=== PATIENT | male | born 1955 | race Caucasian/White ===

== ENCOUNTER 2017-04-02 20:20 | Emergency (ER) | payer BC ==
--- NOTE | 2017-04-02 20:51 | ERPHSYRPT ---
- History of Present Illness Time Seen by Provider: 04/02/17 20:24 Source: patient Exam Limitations: no limitations Patient Subjective Stated Complaint: rash began on to groin area, no drainage or fevers, but not getting better after using Clotrimazole cream at home Triage Nursing Assessment: excoriated, red rash to groin area, no drainage noted , no fevers Physician History: 61 y/o male with history of multiple myeloma comes to the ER with complaints of bilateral groin redness with itching for the past 3 days. Pt has been using clotrimazole cream with no relief. Pt states that he believes that there is seeping and it has spread. No fever or chills. Timing/Duration: day(s) Quality: itchy Location: extremities Possible Causes: no cause identified Modifying Factors: Improves With: other Associated Symptoms: denies symptoms Allergies/Adverse Reactions: ciprofloxacin Allergy (Verified 01/29/16 15:02) morphine Allergy (Verified 01/29/16 15:02) oxycodone [Oxycodone] Allergy (Verified 01/29/16 15:02) prochlorperazine edisylate [From Compazine] Allergy (Verified 01/29/16 15:02) prochlorperazine maleate [From Compazine] Allergy (Verified 01/29/16 15:02) Sulfa (Sulfonamide Antibiotics) [Sulfa(Sulfonamide Antibiotics)] Allergy ( Verified 01/29/16 15:02) Home Medications: Metoprolol Succinate 100 mg [Toprol Xl 100 MG] 100 mg PO DAILY 01/29/16 [ History] Nifedipine [Nifedipine ER] 30 mg PO DAILY 01/29/16 [History] Acyclovir [Acyclovir] 1 tab PO DAILY 04/02/17 [History] Allopurinol 300 mg [Zyloprim 300 mg] 1 tab PO DAILY 04/02/17 [History] Gabapentin [Gabapentin] 1 tab PO DAILY 04/02/17 [History] Ondansetron [Zofran Odt] 1 tab PO PRN 04/02/17 [History] Hx Tetanus, Diphtheria Vaccination/Date Given: Yes Hx Influenza Vaccination/Date Given: No Hx Pneumococcal Vaccination/Date Given: No Immunizations Up to Date: Yes - Review of Systems Constitutional: No Fever, No Chills Eyes: No Symptoms Ears, Nose, & Throat: No Symptoms Respiratory: No Cough, No Dyspnea Cardiac: No Chest Pain, No Edema, No Syncope Abdominal/Gastrointestinal: No Abdominal Pain, No Nausea, No Vomiting, No Diarrhea Genitourinary Symptoms: No Dysuria Musculoskeletal: No Back Pain, No Neck Pain Skin: Pruritis, Rash, Skin Lesions Neurological: No Dizziness, No Focal Weakness, No Sensory Changes Psychological: No Symptoms Endocrine: No Symptoms All Other Systems: Reviewed and Negative - Past Medical History Pertinent Past Medical History: Yes Neurological History: Migraines, Peripheral Neuropathy ENT History: No Pertinent History Cardiac History: Hypertension Respiratory History: Pneumonia Endocrine Medical History: No Pertinent History Musculoskeletal History: Fractures, Other GI Medical History: Hernia History: No Pertinent History Psycho-Social History: No Pertinent History Male Reproductive Disorders: No Pertinent History Other Medical History: MULTIPLE MYeLOMA - Past Surgical History Past Surgical History: Yes Neuro Surgical History: No Pertinent History Cardiac: Vascular Surgery Respiratory: No Pertinent History Gastrointestinal: Hernia Repair Genitourinary: No Pertinent History Musculoskeletal: Joint Replacement, Orthopedic Surgery Male Surgical History: No Pertinent History Other Surgical History: KNEE. cvl port - Social History Smoking Status: Former smoker Exposure to second hand smoke: No Drug Use: none Patient Lives Alone: No - Nursing Vital Signs Nursing Vital Signs: Initial Vital Signs Temperature 97.5 F 04/02/17 20:31 Pulse Rate 80 04/02/17 20:31 Respiratory Rate 18 04/02/17 20:31 Blood Pressure 141/78 04/02/17 20:31 O2 Sat by Pulse Oximetry 99 04/02/17 20:31 Pain Scale Pain Intensity 0 - Physical Exam General Appearance: no apparent distress, alert Eye Exam: PERRL/EOMI, eyes nml inspection Ears, Nose, Throat Exam: normal ENT inspection, pharynx normal, moist mucous membranes Neck Exam: normal inspection, non-tender, supple, full range of motion Respiratory Exam: normal breath sounds, lungs clear, No respiratory distress Cardiovascular Exam: regular rate/rhythm, normal heart sounds Gastrointestinal/Abdomen Exam: soft, mass, No tenderness Back Exam: normal inspection, normal range of motion, No CVA tenderness, No vertebral tenderness Extremity Exam: normal inspection, normal range of motion Neurologic Exam: alert, oriented x 3, cooperative, normal mood/affect, sensation nml, No motor deficits Skin Exam: normal color, warm, dry, rash SpO2: 99 Oxygen Delivery: Room Air - Course Nursing assessment & vital signs reviewed: Yes Ordered Tests: Active Orders 24 hr Category Date Time Status BMP Stat Lab 04/02/17 20:43 Completed Medication Summary Generic Name Dose Route Start Last Admin Trade Name Slime PRN Reason Stop Dose Admin Terbinafine HCl 250 mg 04/02/17 21:49 Lamisil 250 Mg PO 04/02/17 21:50 ONCE ONE Lab/Rad Data: Laboratory Result Diagrams 04/02/17 20:43 Laboratory Results 04/02/17 Range/Units 20:43 Sodium 139 (136-145) mEq/L Potassium 4.6 (3.5-5.1) mEq/L Chloride 106 (98-107) mEq/L Carbon Dioxide 25.5 (21-32) mEq/L Anion Gap 11.6 (5-15) MEQ/L BUN 30 H (9-20) mg/dL Creatinine 1.71 H (0.55-1.30) mg/dl Estimated GFR 44 ML/MIN Glucose 110 (70-110) MG/DL Calcium 9.0 (8.5-10.1) mg/dL - Progress Progress: unchanged Progress Note: 04/02/17 21:50 Pt has tinea cruris and has been using clotrimazole for 3 days with worsening results. Also, patient is a high risk patient with multiple myeloma. Pt will be d/c home with a script for terbinafine for 2 weeks. I have advised the patient to F/U with his PCP in 2 weeks for resolution of symptoms. - Departure Time of Disposition: 21:52 Departure Disposition: Home Clinical Impression: Tinea cruris Condition: Stable Critical Care Time: No Referrals: SAVITA FARAH [Primary Care Provider] - Instructions: Rash Additional Instructions: Finish the medication until completion. After 2 weeks, follow up with your primary care doctor. Prescriptions: Terbinafine HCl [Lamisil] 250 mg PO DAILY #14 tablet
[2017-04-02 21:24] LABS: ANION GAP 11.6 MEQ/L (5-15); Carbon Dioxide 25.5 mEq/L (21-32); Potassium 4.6 mEq/L (3.5-5.1)
[2017-04-02] MEDS ORDERED: lamISIL 250 MG PO ONE (21:49)
[2017-04-02 22:37] VITALS: BP 133/77; PULSE 72; O2SAT 94
== END 2017-04-02 22:46 | disposition home or self-care (01) ==
LOC: ED 20:20
DX: B35.6 Tinea cruris (principal); C90.00 Multiple myeloma not having achieved remission
CPT/HCPCS: 36415; 80048; 99283; A9270-GY

== ENCOUNTER 2017-07-06 18:25 | Emergency (ER) | payer MEDICARE, BC ==
[2017-07-06 19:30] LABS: BASOPHIL % 0.3 % (0.0-0.4); Basophil (Absolute #) 0.01 (0-0.4); Eosinophil % 1.2 % (0.00-5.0); Eosinophil (Absolute #) 0.04 (0-0.5); Granulocyte Absolute (ANC) 1.48 (1.4-6.9); Granulocytes % 46.2 % (36.0-66.0); Hemoglobin 10.3 gm/dl (12.5-18.0); Lymphocyte (Absolute #) 1.15 (1.0-4.6); Lymphocytes % 35.8 % (24.0-44.0); Mean Cell Volume 96.9 fl (78-100); Mean Corpuscular Hgb Concent. 33.2 g/dl (32-36); Mean Platelet Volume 10.4 fl (6-9.5); Monocyte (Absolute #) 0.53 (0.0-1.3); Monocytes % 16.5 % (0.0-12.0); Platelet Count 114 K/mm3 (150-450); Red Cell Distribution Width 17.5 % (11.5-14.0); White Blood Count 3.2 K/mm3 (4.0-10.5)
[2017-07-06] MEDS ORDERED: Hydromorphone 1 mg/ml Ampule IV ONE ×2 (19:32→23:34)
[2017-07-06] MEDS ORDERED: Sodium Chloride 0.9% 1000 ML 1,000 ML IV STA (19:32)
[2017-07-06 19:36] LABS: Mean Corpuscular Hemoglobin 32.1 pg (26-32)
--- NOTE | 2017-07-06 19:36 | ERPHSYRPT ---
- History of Present Illness Time Seen by Provider: 07/06/17 19:29 Historian: patient Exam Limitations: no limitations Patient Subjective Stated Complaint: pt reports right low abd pain beginning this morning-intermittant in nature-at times sharp and at times dull-denies difficulty with urination-denies difficulty with bowels Triage Nursing Assessment: pt pink warm and dry-reports pain with palp to right flank area-abd soft and nontender to palp-pt yesterday was dx with flu b Physician History: 61-year-old white male arrives with complaint of right lower quadrant abdominal pain symptoms since this morning crampy severe nonradiating no associated nausea or vomiting Past medical history includes peripheral neuropathy, pneumonia, migraines, high blood pressure, fractures, multiple myeloma Past surgical history includes vascular surgery, hernia, surgery on the patient' s knee, patient has a port Timing/Duration: today (2:00 am today) Activities at Onset: none Quality: cramping Abdominal Pain Onset Location: RLQ Pain Radiation: no radiation Severity of Pain-Max: moderate Severity of Pain-Current: moderate Modifying Factors: Improves With: nothing Associated Symptoms: denies symptoms Previous symptoms: no prior history Allergies/Adverse Reactions: ciprofloxacin Allergy (Verified 07/06/17 18:42) morphine Allergy (Verified 07/06/17 18:42) oxycodone [Oxycodone] Allergy (Verified 07/06/17 18:42) prochlorperazine edisylate [From Compazine] Allergy (Verified 07/06/17 18:42) prochlorperazine maleate [From Compazine] Allergy (Verified 07/06/17 18:42) Sulfa (Sulfonamide Antibiotics) [Sulfa(Sulfonamide Antibiotics)] Allergy ( Verified 07/06/17 18:42) Home Medications: Metoprolol Succinate 100 mg [Toprol Xl 100 MG] 100 mg PO DAILY 01/29/16 [ History] Nifedipine [Nifedipine ER] 30 mg PO DAILY 01/29/16 [History] Acyclovir [Acyclovir] 1 tab PO DAILY 04/02/17 [History] Allopurinol 300 mg [Zyloprim 300 mg] 1 tab PO DAILY 04/02/17 [History] Gabapentin [Gabapentin] 1 tab PO DAILY 04/02/17 [History] Ondansetron [Zofran Odt] 1 tab PO UD PRN 04/02/17 [History] Hx Tetanus, Diphtheria Vaccination/Date Given: Yes Hx Influenza Vaccination/Date Given: No Hx Pneumococcal Vaccination/Date Given: No Immunizations Up to Date: Yes - Review of Systems Constitutional: No Fever, No Chills Eyes: No Symptoms Ears, Nose, & Throat: No Symptoms Cardiac: No Chest Pain, No Edema, No Syncope Abdominal/Gastrointestinal: Abdominal Pain (right lower quadrant abdominal pain) , No Nausea, No Vomiting, No Diarrhea, No Constipation, No Hematemesis, No Hematochezia, No Melena, No Dysphagia, No Appetite Changes Genitourinary Symptoms: No Dysuria, No Frequency, No Hematuria, No Hesitancy, No Incontinence, No Urgency, No Urinary Retention, No Flank Pain, No Testicle Pain, No Penile Discharge Musculoskeletal: No Symptoms, No Back Pain, No Neck Pain Skin: No Symptoms, No Rash Neurological: No Dizziness, No Focal Weakness, No Sensory Changes Psychological: No Symptoms Endocrine: No Symptoms All Other Systems: Reviewed and Negative - Past Medical History Pertinent Past Medical History: Yes Neurological History: Migraines, Peripheral Neuropathy ENT History: No Pertinent History Cardiac History: Hypertension Respiratory History: Pneumonia Endocrine Medical History: No Pertinent History Musculoskeletal History: Fractures, Other GI Medical History: Hernia History: No Pertinent History Psycho-Social History: No Pertinent History Male Reproductive Disorders: No Pertinent History Other Medical History: MULTIPLE MYeLOMA - Past Surgical History Past Surgical History: Yes Neuro Surgical History: No Pertinent History Cardiac: Vascular Surgery Respiratory: No Pertinent History Gastrointestinal: Hernia Repair Genitourinary: No Pertinent History Musculoskeletal: Joint Replacement, Orthopedic Surgery Male Surgical History: No Pertinent History Other Surgical History: KNEE. cvl port - Social History Smoking Status: Former smoker Exposure to second hand smoke: No Drug Use: none Patient Lives Alone: No - Nursing Vital Signs Nursing Vital Signs: Initial Vital Signs Temperature 97.3 F 07/06/17 18:36 Pulse Rate 67 07/06/17 18:36 Respiratory Rate 18 07/06/17 18:36 Blood Pressure 155/76 07/06/17 18:36 O2 Sat by Pulse Oximetry 97 07/06/17 18:36 Pain Scale Pain Intensity 4 - Physical Exam General Appearance: moderate distress Eye Exam: PERRL/EOMI, eyes nml inspection Ears, Nose, Throat Exam: normal ENT inspection, pharynx normal, moist mucous membranes Neck Exam: normal inspection, non-tender, supple, full range of motion Cardiovascular Exam: regular rate/rhythm, normal heart sounds Gastrointestinal/Abdomen Exam: soft, normal bowel sounds, tenderness (right lower quadrant abdominal pain), No distention, No mass, No guarding, No ecchymosis, No pulsatile mass, No rebound, No hernia, No hepatomegaly, No organomegaly, No splenomegaly Back Exam: normal inspection, normal range of motion, No CVA tenderness, No vertebral tenderness Extremity Exam: normal inspection, normal range of motion, pelvis stable Neurologic Exam: alert, oriented x 3, cooperative, normal mood/affect, nml cerebellar function, sensation nml, No motor deficits SpO2 Interpretation: normal (97%) SpO2: 97 Oxygen Delivery: Room Air - Course Nursing assessment & vital signs reviewed: Yes - CT Exams Abdomen/Pelvis CT Interpretation: Discussed w/radiologist (4.5 mm distal right ureteral calculus proximal to right uvj, proximal mils hydroureter, moderate hydronephrosis, and mild perinephric stranding consistent with obstructive uropathy, additional bilateral renal mjicrocalculi, and 2.5 cm right renal cyst. small hiatal hernia and old bilateral lower rib fracturesnumerous bony lytic lesions in spineand pelvis, consistent with known multiple myeloma) Ordered Tests: Active Orders 24 hr Category Date Time Status IV Insertion STAT Care 07/06/17 19:15 Active ABDOMEN AND PELVIS W/0 CONTRAS [CT] Stat Exams 07/06/17 20:58 Taken CBC W DIFF Stat Lab 07/06/17 18:50 Completed CMP Stat Lab 07/06/17 18:50 Completed UA W/ MICROSCOPIC Stat Lab 07/06/17 20:00 Completed Medication Summary Discontinued Medications Generic Name Dose Route Start Last Admin Trade Name Freq PRN Reason Stop Dose Admin Hydromorphone HCl 1 mg 07/06/17 19:32 07/06/17 19:40 Hydromorphone 1 Mg/Ml Ampule IV 07/06/17 19:33 1 mg STAT ONE Administration Hydromorphone HCl Confirm 07/06/17 19:39 Dilaudid 2 Mg Injection Administered 07/06/17 19:40 Dose 2 mg .ROUTE .[facility]-MED ONE Hydromorphone HCl 1 mg 07/06/17 23:34 07/06/17 23:40 Hydromorphone 1 Mg/Ml Ampule IV 07/06/17 23:35 1 mg STAT ONE Administration Hydromorphone HCl Confirm 07/06/17 23:39 Dilaudid 2 Mg Injection Administered 07/06/17 23:40 Dose 2 mg .ROUTE .STK-MED ONE Sodium Chloride 1,000 mls @ 999 mls/hr 07/06/17 19:32 07/06/17 19:40 Sodium Chloride 0.9% 1000 Ml IV 07/06/17 20:32 999 mls/hr .Q1H1M STA Administration Sodium Chloride Confirm 07/06/17 19:39 Sodium Chloride 0.9% 1000 Ml Administered 07/06/17 19:40 Dose 1,000 mls @ ud .ROUTE .STK-MED ONE Sodium Chloride 1,000 mls @ 100 mls/hr 07/06/17 22:45 07/06/17 22:42 Sodium Chloride 0.9% 1000 Ml IV 08/05/17 22:44 100 mls/hr .Q10H BOBBY Administration Sodium Chloride Confirm 07/06/17 22:41 Sodium Chloride 0.9% 1000 Ml Administered 07/06/17 22:42 Dose 1,000 mls @ ud .ROUTE .STK-MED ONE Ketorolac Tromethamine 30 mg 07/06/17 22:37 07/06/17 22:42 Toradol 30 Mg Injection IV 07/06/17 22:38 30 mg STAT ONE Administration Ketorolac Tromethamine Confirm 07/06/17 22:41 Toradol 30 Mg Injection Administered 07/06/17 22:42 Dose 30 mg .ROUTE .STK-MED ONE Lab/Rad Data: Laboratory Result Diagrams 07/06/17 18:50 07/06/17 18:50 Laboratory Results 07/06/17 07/06/17 07/06/17 Range/Units Unknown Unknown 20:00 WBC (4.0-10.5) K/mm3 RBC (4.1-5.6) M/mm3 Hgb (12.5-18.0) gm/dl Hct (42-50) % MCV (78-100) fl MCH (26-32) pg MCHC (32-36) g/dl RDW (11.5-14.0) % Plt Count (150-450) K/mm3 MPV (6-9.5) fl Gran % (36.0-66.0) % Eos # (Auto) (0-0.5) Lymphocytes % (24.0-44.0) % Monocytes % (0.0-12.0) % Eosinophils % (0.00-5.0) % Basophils % (0.0-0.4) % Absolute Granulocytes (1.4-6.9) Basophils # (0-0.4) Sodium (137-145) mmol/L Potassium (3.5-5.1) mmol/L Chloride (98-107) mmol/L Carbon Dioxide (22-30) mmol/L Anion Gap (5-15) MEQ/L BUN (9-20) mg/dL Creatinine (0.66-1.25) mg/dL Estimated GFR ML/MIN Glucose (74-106) mg/dL Calcium (8.4-10.2) mg/dL Total Bilirubin (0.2-1.3) mg/dL AST (17-59) U/L ALT (0-50) U/L Alkaline Phosphatase (38-126) U/L Serum Total Protein (6.3-8.2) g/dL Albumin (3.5-5.0) g/dL Amylase 85 (30-110) U/L Lipase 156 (23-300) U/L Ur Collection Type CCMS Urine Color YELLOW (YELLOW) Urine Appearance CLEAR (CLEAR) Urine pH 5.0 (5-6) Ur Specific [place] 1.020 (1.005-1.025) Urine Protein TRACE (Negative) Urine Ketones NEGATIVE (NEGATIVE) Urine Blood NEGATIVE (0-5) [place]/ul Urine Nitrite NEGATIVE (NEGATIVE) Urine Bilirubin NEGATIVE (NEGATIVE) Urine Urobilinogen NORMAL (0-1) mg/dL Ur Leukocyte Esterase NEGATIVE (NEGATIVE) Urine Microscopic WBC 0-2 (0-5) /HPF Ur Epithelial Cells RARE (FEW) /HPF Hyaline Casts 0-2 (0-2) /LPF Urine Culture Reflexed NO (NO) Urine Glucose NEGATIVE (NEGATIVE) mg/dL Specimen Received 07-06-17200907/06/17 07/06/17 Range/Units 18:50 18:50 WBC 3.2 L (4.0-10.5) K/mm3 RBC 3.20 L (4.1-5.6) M/mm3 Hgb 10.3 L (12.5-18.0) gm/dl Hct 31.0 L (42-50) % MCV 96.9 (78-100) fl MCH 32.1 H (26-32) pg MCHC 33.2 (32-36) g/dl RDW 17.5 H (11.5-14.0) % Plt Count 114 L (150-450) K/mm3 MPV 10.4 H (6-9.5) fl Gran % 46.2 (36.0-66.0) % Eos # (Auto) 0.04 (0-0.5) Lymphocytes % 35.8 (24.0-44.0) % Monocytes % 16.5 H (0.0-12.0) % Eosinophils % 1.2 (0.00-5.0) % Basophils % 0.3 (0.0-0.4) % Absolute Granulocytes 1.48 (1.4-6.9) Basophils # 0.01 (0-0.4) Sodium 138 (137-145) mmol/L Potassium 4.1 (3.5-5.1) mmol/L Chloride 106 (98-107) mmol/L Carbon Dioxide 22 (22-30) mmol/L Anion Gap 14.8 (5-15) MEQ/L BUN 25 H (9-20) mg/dL Creatinine 2.04 H (0.66-1.25) mg/dL Estimated GFR 36 ML/MIN Glucose 96 (74-106) mg/dL Calcium 8.8 (8.4-10.2) mg/dL Total Bilirubin 0.30 (0.2-1.3) mg/dL AST 26 (17-59) U/L ALT 17 (0-50) U/L Alkaline Phosphatase 63 (38-126) U/L Serum Total Protein 7.3 (6.3-8.2) g/dL Albumin 4.0 (3.5-5.0) g/dL Amylase (30-110) U/L Lipase (23-300) U/L Ur Collection Type Urine Color (YELLOW) Urine Appearance (CLEAR) Urine pH (5-6) Ur Specific [place] (1.005-1.025) Urine Protein (Negative) Urine Ketones (NEGATIVE) Urine Blood (0-5) [place]/ul Urine Nitrite (NEGATIVE) Urine Bilirubin (NEGATIVE) Urine Urobilinogen (0-1) mg/dL Ur Leukocyte Esterase (NEGATIVE) Urine Microscopic WBC (0-5) /HPF Ur Epithelial Cells (FEW) /HPF Hyaline Casts (0-2) /LPF Urine Culture Reflexed (NO) Urine Glucose (NEGATIVE) mg/dL Specimen Received - Progress Progress: improved Progress Note: 07/06/17 22:37 Patient improved but still with pain after [address] of Dilaudid IV CT of the abdomen shows a 4.5 mm distal right ureter calculi proximal to the UVJ there is proximal hydro ureter, moderate hydronephrosis and mild perinephritic stranding consistent with obstructive uropathy. There additional bilateral renal micro-calculi and a 2.4 cm right renal cyst, small hiatal hernia and old bilateral lower rib fractures there are numerous bony lytic lesions in the spine and pelvis consistent with the patient's known multiple myeloma Will give patient Toradol additional IV fluids 07/06/17 23:18 Patient is feeling better. Patient does have a 4.5 mm distal right ureteral calculus as noted above. I've discussed whether the patient wants to go home and try plenty of fluids taking Dilantin as prescribed by his family doctor for pain straining his urine in following up. Or whether we need to discuss possible observation for pain control with the patient. He is considering this. Will monitor the patient a little longer until he decides what he wants. Patient will need to follow-up with his family doctor or urologist 07/06/17 23:34 Patient wants to try to go home and take his pain medications as prescribed by his family doctor. Will give patient an additional 1 mg of hydromorphone. Will plan have patient return home plenty of fluids strain his urine follow-up with Dr. Pedroza, his family doctor. He will be instructed to return for acute distress or for severe symptoms. - Departure Time of Disposition: 23:35 Departure Disposition: Home Clinical Impression: Right lower quadrant pain Urolithiasis Qualifiers: Urinary calculus location: ureter Qualified Code(s): N20.1 - Calculus of ureter Condition: Fair Critical Care Time: No Referrals: YOUSUF FARAH [Primary Care Provider] - Instructions: Kidney Stones (DC) Additional Instructions: Return home. Strain all urine. Pain medication as prescribed by your family doctor. Follow-up with your family doctor or urologist call tomorrow to arrange follow- up. Plenty of fluids. Return for acute distress or for severe symptoms.
[2017-07-06] MEDS ORDERED: Sodium Chloride 0.9% 1000 ML 1,000 ML ONE ×2 (19:39→22:41)
[2017-07-06] MEDS ORDERED: DILAUDID 2 MG INJECTION ONE ×2 (19:39→23:39)
[2017-07-06 20:10] LABS: Appearance CLEAR (CLEAR); Bilirubin NEGATIVE (NEGATIVE); Blood NEGATIVE Ery/ul (0-5); Glucose NEGATIVE (NEGATIVE); Ketones NEGATIVE (NEGATIVE); Leukocyte Esterase NEGATIVE (NEGATIVE); Nitrite NEGATIVE (NEGATIVE); Protein,Urine Dip TRACE (Negative); Urobilinogen NORMAL mg/dL (0-1)
[2017-07-06 20:16] LABS: ANION GAP 14.8 MEQ/L (5-15); BILIRUBIN,TOTAL 0.3 mg/dL (0.2-1.3); Calcium 8.8 mg/dL (8.4-10.2); Creatinine 1 2.04 mg/dL (0.66-1.25); Potassium 4.1 mmol/L (3.5-5.1); Total Protein 7.3 g/dL (6.3-8.2)
[2017-07-06 20:24] LABS: Epithelial Cells RARE /HPF (FEW); Hyaline Casts 0-2 /LPF (0-2); WBC 0-2 /HPF (0-5)
[2017-07-06 22:34] VITALS: O2SAT 97
[2017-07-06] MEDS ORDERED: TORAdol 30 mg Injection IV ONE (22:37)
[2017-07-06] MEDS ORDERED: TORAdol 30 mg Injection ONE (22:41)
[2017-07-06] MEDS ORDERED: Sodium Chloride 0.9% 1000 ML 1,000 ML IV SCH (22:45)
[2017-07-06 23:47] VITALS: BP 163/90; PULSE 80
--- NOTE | 2017-07-07 09:27 | XRAY ---
Indication: Lower abdominal/right flank pain. Difficulty urinating. History multiple myeloma. Multiple contiguous axial images obtained through the abdomen and pelvis without contrast as ordered. Comparison: None Lung bases demonstrate mild right base atelectasis/scarring. No infiltrate or effusion. Heart is not enlarged. Small hiatal hernia. There are multiple bilateral renal micro-calculi. 4-5 mm distal right ureteral calculus just proximal to the UVJ. The more proximal right ureter is mildly distended and there is moderate hydronephrosis with minimal perinephric stranding consistent with partial obstructive uropathy. No evidence for left-sided obstructive uropathy. 2.4 cm exophytic right renal cyst. Noncontrasted stomach and bowel loops appear nonobstructed. Normal appendix. Bilateral hip prostheses produces extensive beam artifact limiting evaluation of the floor the pelvis. No free fluid/air. Remaining liver, gallbladder, pancreas, spleen, adrenal glands, left ureter, and urinary bladder appear unremarkable. Mild aortoiliac calcifications without AAA. Osseous structures demonstrates multiple old bilateral lower rib fractures. There are also numerous lytic lesions throughout the spine and pelvis consistent with patient's history of multiple myeloma. Small fatty left inguinal hernia. Impression: 1. 4-5 mm distal right ureteral calculus producing partial obstruction as detailed. Additional bilateral renal micro-calculi and incidental right renal cyst. 2. Small hiatal hernia and small fatty left inguinal hernia. 3. Images of the pelvis limited due to beam artifact from bilateral hip prostheses. 4. Diffuse bony lytic lesions consistent with patient's history of multiple myeloma. CT DI 23.59
== END 2017-07-07 00:10 | disposition home or self-care (01) ==
LOC: ED 18:25
DX: N13.2 Hydronephrosis with renal and ureteral calculous obstruction (principal); N20.2 Calculus of kidney with calculus of ureter; Z79.899 Other long term (current) drug therapy
CPT/HCPCS: 36415; 74176; 80053; 81000; 82150; 83690; 85025; 96360; 96361; 96374; 96375; 96376; 99284; J1170; J1885

== ENCOUNTER 2019-09-08 19:40 | Emergency (ER) | payer BC ==
--- NOTE | 2019-09-08 20:09 | ERPHSYRPT ---
- History of Present Illness Time Seen by Provider: 09/08/19 20:05 Source: patient Exam Limitations: no limitations Patient Subjective Stated Complaint: sore throat onset Triage Nursing Assessment: pt to ED c/o sore throat onset . pt denies fever, cough, SOB, SAHA, or any exposure to COVID-19. no pain at rest, but pain increases to 8/10 while swallowing. no swelling noted, however throat does appear reddened without evidence of blistering. no diff breathing. pt ambulatory to room and self to bed. VS NWL. heart sounds clear and lung sounds clear and equal bilat. A&Ox3. Physician History: pt has hx of sinus allergy adn recent tx one month ago has st a few days with pain; swallowing OK in ER Timing/Duration: gradual onset Severity: moderate ENT Location: throat Prearrival Treatment: over the counter meds Modifying Factors: Improves With: nothing Associated Symptoms: nasal congestion/drainage, sore throat Allergies/Adverse Reactions: ciprofloxacin Allergy (Verified 09/08/19 20:55) morphine Allergy (Verified 09/08/19 20:55) oxycodone [Oxycodone] Allergy (Verified 09/08/19 20:55) prochlorperazine edisylate [From Compazine] Allergy (Verified 09/08/19 20:55) prochlorperazine maleate [From Compazine] Allergy (Verified 09/08/19 20:55) Sulfa (Sulfonamide Antibiotics) [Sulfa(Sulfonamide Antibiotics)] Allergy ( Verified 09/08/19 20:55) Home Medications: Metoprolol Succinate 100 mg [Toprol Xl 100 MG] 100 mg PO DAILY 01/29/16 [ History] Nifedipine [Nifedipine ER] 30 mg PO DAILY 01/29/16 [History] Acyclovir 1 tab PO DAILY 04/02/17 [History] Allopurinol 300 mg [Zyloprim 300 mg] 1 tab PO DAILY 04/02/17 [History] Gabapentin 1 tab PO DAILY 04/02/17 [History] Ondansetron [Zofran Odt] 1 tab PO UD PRN 04/02/17 [History] Hx Tetanus, Diphtheria Vaccination/Date Given: Yes Hx Influenza Vaccination/Date Given: No Hx Pneumococcal Vaccination/Date Given: No Travel Risk - International Travel Have you traveled outside of the country in past 3 weeks: No Have you or anyone close to you been diagnosed with or: No Do your reside in a community with a known COVID-19 case?: Yes If Yes where:: [place] - Coronavirus Screening Has patient experienced Coronavirus symptoms: No - Review of Systems Constitutional: No Fever, No Chills Eyes: No Symptoms Ears, Nose, & Throat: Nose Congestion, Nose Discharge, Sinus Drainage, Throat Pain Respiratory: No Cough, No Dyspnea Cardiac: No Chest Pain, No Edema, No Syncope Abdominal/Gastrointestinal: No Abdominal Pain, No Nausea, No Vomiting, No Diarrhea Genitourinary Symptoms: No Dysuria Musculoskeletal: No Back Pain, No Neck Pain Skin: No Rash Neurological: No Dizziness, No Focal Weakness, No Sensory Changes Psychological: No Symptoms Endocrine: No Symptoms All Other Systems: Reviewed and Negative - Past Medical History Pertinent Past Medical History: Yes Neurological History: Migraines, Peripheral Neuropathy ENT History: No Pertinent History Cardiac History: Hypertension Respiratory History: Pneumonia Endocrine Medical History: No Pertinent History Musculoskeletal History: Fractures, Other GI Medical History: Hernia History: No Pertinent History Psycho-Social History: No Pertinent History Male Reproductive Disorders: No Pertinent History Other Medical History: MULTIPLE MYeLOMA - Past Surgical History Past Surgical History: Yes Neuro Surgical History: No Pertinent History Cardiac: Vascular Surgery Respiratory: No Pertinent History Gastrointestinal: Hernia Repair Genitourinary: No Pertinent History Musculoskeletal: Joint Replacement, Orthopedic Surgery Male Surgical History: No Pertinent History Other Surgical History: KNEE. cvl port - Social History Smoking Status: Former smoker How long have you smoked: quit in Exposure to second hand smoke: No Drug Use: none Patient Lives Alone: No - Nursing Vital Signs Nursing Vital Signs: Initial Vital Signs Temperature 97.3 F 09/08/19 19:46 Pulse Rate 98 H 09/08/19 19:46 Respiratory Rate 18 09/08/19 19:46 Blood Pressure 160/74 09/08/19 19:46 O2 Sat by Pulse Oximetry 98 09/08/19 19:46 Pain Scale Pain Intensity 8 - Physical Exam General Appearance: no apparent distress, alert Eye Exam: bilateral eye: PERRL, EOMI Ear Exam: bilateral ear: auricle normal, canal normal, TM normal Nasal Exam: discharge, sinus tenderness Throat Exam: pharynx normal, moist mucus membranes, No tonsillar exudate Neck Exam: normal inspection, supple, trachea midline, No lymphadenopathy (R), No lymphadenopathy (L), No tender midline, No meningismus Cardiovascular/Respiratory Exam: normal breath sounds, regular rate/rhythm Abdominal Exam: non-tender, soft Neurologic Exam: alert, oriented x 3, sensation nml, No motor deficits Skin Exam: normal color, warm, dry SpO2 Interpretation: normal SpO2: 98 O2 Delivery: Room Air - Course Nursing assessment & vital signs reviewed: Yes - Radiology Exams Other X-ray Interpretation: Reviewed by me, Other (DJD no abn soft tissue) Ordered Tests: Active Orders 24 hr Category Date Time Status Isolation, Initiate & Maintain Q12H Care 09/08/19 19:59 Active Pulse Oximetry (ED) STAT Care 09/08/19 20:09 Active NECK SOFT TISSUE Stat Exams 09/08/19 20:27 Taken CBC W DIFF Stat Lab 09/08/19 20:40 Completed [place] Screen Stat Lab 09/08/19 20:40 Completed Lab/Rad Data: Laboratory Result Diagrams 09/08/19 20:40 Laboratory Results 09/08/19 09/08/19 09/08/19 Range/Units 20:40 20:40 20:40 WBC 7.6 (4.0-10.5) K/mm3 RBC 3.14 L (4.1-5.6) M/mm3 Hgb 10.1 L (12.5-18.0) gm/dl Hct 30.6 L (42-50) % MCV 97.5 (78-100) fl MCH 32.2 H (26-32) pg MCHC 33.0 (32-36) g/dl RDW 17.5 H (11.5-14.0) % Plt Count 198 (150-450) K/mm3 MPV 8.8 (7.5-11.0) fl Gran % 74.9 H (36.0-66.0) % Eos # (Auto) 0 (0-0.5) Absolute Lymphs (auto) 1.43 (1.0-4.6) Absolute Monos (auto) 0.46 (0.0-1.3) Lymphocytes % 18.9 L (24.0-44.0) % Monocytes % 6.1 (0.0-12.0) % Eosinophils % 0.0 (0.00-5.0) % Basophils % 0.1 (0.0-0.4) % Absolute Granulocytes 5.66 (1.4-6.9) Basophils # 0.01 (0-0.4) Monoscreen NEGATIVE (Negative) Influenza Type A Ag NEGATIVE (NEGATIVE) Influenza Type B Ag NEGATIVE (NEGATIVE) RSV (PCR) NEGATIVE (Negative) Group A Strep Antibody NOT DETECTED (NEGATIVE) - Progress Progress: improved, re-examined Progress Note: 09/08/19 22:50 discussed the findings with pt and he wishes to go on ab incase of undetected strep, sinus recurring and/or mycoplasma. 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 Counseled pt/family regarding: lab results, diagnosis, need for follow-up, rad results - Departure Departure Disposition: Home Clinical Impression: pharyngitis unknown cause, Anemia Condition: Good Critical Care Time: No Referrals: AB VALDOVINOS MD [Primary Care Provider] - Instructions: Sore Throat, Adult (DC), Viral Pharyngitis (DC), Strep Throat ( DC) Additional Instructions: followup with your DrAna Paula this week to workup anemia, return meantime if not improving, fever, cough, trouble swallowing or other concerns. also followup your blood pressure Prescriptions: Amox Tr/Potass Clav. 875 mg [Augmentin 875-125 Tablet] 875 mg PO BID #20 tablet
[2019-09-08 20:46] LABS: Absolute Neutrophil Ct (ANC) 5.66 (1.4-6.9); BASOPHIL % 0.1 % (0.0-0.4); Basophil (Absolute #) 0.01 (0-0.4); Eosinophil (Absolute #) 0 (0-0.5); Hematocrit 30.6 % (42-50); Hemoglobin 10.1 gm/dl (12.5-18.0); Lymphocyte (Absolute #) 1.43 (1.0-4.6); Lymphocytes % 18.9 % (24.0-44.0); Mean Cell Volume 97.5 fl (78-100); Mean Corpuscular Hemoglobin 32.2 pg (26-32); Mean Platelet Volume 8.8 fl (7.5-11.0); Monocyte (Absolute #) 0.46 (0.0-1.3); Monocytes % 6.1 % (0.0-12.0); Neutrophil % 74.9 % (36.0-66.0); Platelet Count 198 K/mm3 (150-450); Red Blood Count 3.14 M/mm3 (4.1-5.6); Red Cell Distribution Width 17.5 % (11.5-14.0); White Blood Count 7.6 K/mm3 (4.0-10.5)
[2019-09-08 21:17] LABS: INFLUENZA A NEGATIVE (NEGATIVE); INFLUENZA B NEGATIVE (NEGATIVE); RESPIRATORY SYNCTIAL VIRUS NEGATIVE (Negative)
[2019-09-08 22:24] VITALS: O2SAT 98
[2019-09-08 22:57] VITALS: BP 147/89; PULSE 86
--- NOTE | 2019-09-09 08:03 | XRAY ---
Indication: Sore throat. Comparison: None AP/lateral soft tissue neck demonstrates mild/moderate multilevel degenerative spondylosis, tiny C6 spinous process heterotopic ossification, and mild scattered vascular calcifications. Visualized supra and infraglottic airway are widely patent. Normal epiglottis. Partially visualized left Port-A-Cath. Impression: Negative soft tissue neck with incidental chronic findings.
== END 2019-09-08 23:10 | disposition home or self-care (01) ==
LOC: ED 19:40
DX: J02.9 Acute pharyngitis, unspecified (principal); D64.9 Anemia, unspecified; G62.9 Polyneuropathy, unspecified; I10 Essential (primary) hypertension
CPT/HCPCS: 36415; 70360; 85025; 86308; 87631; 87651; 94760; 99284

== ENCOUNTER 2019-09-09 15:57 | Emergency (ER) | payer BC ==
[2019-09-09 16:26] VITALS: O2SAT 97
[2019-09-09] MEDS ORDERED: DELTASONE 20 MG PO ONE (16:39)
[2019-09-09] MEDS ORDERED: GI COCKTAIL 45 ML (Maalox/Lidocaine) PO ONE (16:39)
[2019-09-09] MEDS ORDERED: DELTASONE 20 MG ONE (17:09)
[2019-09-09] MEDS ORDERED: XYLOCAINE HCl Viscous ONE (17:12)
[2019-09-09] MEDS ORDERED: MAALOX ES 30 ML UNIT DOSE ONE (17:12)
--- NOTE | 2019-09-09 17:12 | ERPHSYRPT ---
- History of Present Illness Time Seen by Provider: 09/09/19 16:38 Source: patient Exam Limitations: no limitations Patient Subjective Stated Complaint: Pt had been in this ER last night for a sore throat and was sent home with an antibiotic, pt states that today it hurts further down in his trachea as if it is swelling up and it is hard for him to breath Triage Nursing Assessment: Pt was brought to the ER by his , pts throat looks normal with no visible swelling or puscules, pt states that he has been having a lot of nasal drainage lately, pt states that when he swallow that his pain level is an 8-9/10, hypertensive, O2 on room air is 97%, pt does not smoke , pt doesn't appear to be in any distress, pt denies any other issues at this time Physician History: 63 years old male with history of hypertension, GERD, myeloma status post radiation long time ago currently on chemotherapy almost 2 weeks ago last episode he was evaluated yesterday in the ER for sore throat, prescribed Augmentin has taken 1 dose presented back in the ER because of increasing pain with swallowing in the lower throat. Patient report he is having razor blade cutting with swallowing. It feels like it is swelling. No difficulty breathing otherwise but it hurts in the throat. No fever or chills reported. Timing/Duration: day(s) (2), gradual onset, worse Severity: moderate Modifying Factors: Improves With: other (Increases with swallowing) Associated Symptoms: heartburn, No nausea, No vomiting, No abdominal pain, No shortness of breath, No cough, No chest pain Allergies/Adverse Reactions: ciprofloxacin Allergy (Verified 09/08/19 20:55) morphine Allergy (Verified 09/08/19 20:55) oxycodone [Oxycodone] Allergy (Verified 09/08/19 20:55) prochlorperazine edisylate [From Compazine] Allergy (Verified 09/08/19 20:55) prochlorperazine maleate [From Compazine] Allergy (Verified 09/08/19 20:55) Sulfa (Sulfonamide Antibiotics) [Sulfa(Sulfonamide Antibiotics)] Allergy ( Verified 09/08/19 20:55) Home Medications: Metoprolol Succinate 100 mg [Toprol Xl 100 MG] 100 mg PO DAILY 01/29/16 [ History] Nifedipine [Nifedipine ER] 30 mg PO DAILY 01/29/16 [History] Acyclovir 1 tab PO DAILY 04/02/17 [History] Allopurinol 300 mg [Zyloprim 300 mg] 1 tab PO DAILY 04/02/17 [History] Gabapentin 1 tab PO DAILY 04/02/17 [History] Ondansetron [Zofran Odt] 1 tab PO UD PRN 04/02/17 [History] Hx Tetanus, Diphtheria Vaccination/Date Given: Yes Hx Influenza Vaccination/Date Given: No Hx Pneumococcal Vaccination/Date Given: No Travel Risk - International Travel Have you traveled outside of the country in past 3 weeks: No Have you or anyone close to you been diagnosed with or: No Do your reside in a community with a known COVID-19 case?: Yes If Yes where:: [place] - Coronavirus Screening Has patient experienced Coronavirus symptoms: No - Review of Systems Constitutional: No Symptoms Eyes: No Symptoms Ears, Nose, & Throat: Throat Pain, Throat Swelling, Painful Swallowing Respiratory: No Symptoms Cardiac: No Symptoms Abdominal/Gastrointestinal: No Symptoms Genitourinary Symptoms: No Symptoms Musculoskeletal: No Symptoms Skin: No Symptoms Neurological: No Symptoms Psychological: No Symptoms Endocrine: No Symptoms Hematologic/Lymphatic: No Symptoms Immunological/Allergic: No Symptoms - Past Medical History Pertinent Past Medical History: Yes Neurological History: Migraines, Peripheral Neuropathy ENT History: No Pertinent History Cardiac History: Hypertension Respiratory History: Pneumonia Endocrine Medical History: No Pertinent History Musculoskeletal History: Fractures, Other GI Medical History: Hernia History: No Pertinent History Psycho-Social History: No Pertinent History Male Reproductive Disorders: No Pertinent History Other Medical History: MULTIPLE MYeLOMA - Past Surgical History Past Surgical History: Yes Neuro Surgical History: No Pertinent History Cardiac: Vascular Surgery Respiratory: No Pertinent History Gastrointestinal: Hernia Repair Genitourinary: No Pertinent History Musculoskeletal: Joint Replacement, Orthopedic Surgery Male Surgical History: No Pertinent History Other Surgical History: KNEE. cvl port - Social History Smoking Status: Former smoker How long have you smoked: quit in 95 Exposure to second hand smoke: No Drug Use: none Patient Lives Alone: No - Nursing Vital Signs Nursing Vital Signs: Initial Vital Signs Temperature 98.2 F 09/09/19 16:18 Pulse Rate 92 H 09/09/19 16:18 Respiratory Rate 18 09/09/19 16:18 Blood Pressure 158/89 09/09/19 16:18 O2 Sat by Pulse Oximetry 97 09/09/19 16:18 Pain Scale Pain Intensity 2 - Physical Exam General Appearance: no apparent distress, alert, anxiety Eye Exam: eyes nml inspection Ears, Nose, Throat Exam: normal ENT inspection, moist mucous membranes, pharyngeal erythema (With some postnasal drip), No tonsillar exudate Neck Exam: normal inspection, non-tender, supple, full range of motion Respiratory Exam: normal breath sounds, lungs clear, No chest tenderness Cardiovascular Exam: regular rate/rhythm, normal heart sounds Gastrointestinal/Abdomen Exam: soft, No tenderness Back Exam: normal inspection, normal range of motion Extremity Exam: normal inspection, normal range of motion Neurologic Exam: alert, oriented x 3, cooperative Skin Exam: normal color SpO2 Interpretation: normal SpO2: 97 O2 Delivery: Room Air - Course EKG Interpreted by Me: RATE (91), NORMAL AXIS, NORMAL INTERVALS, NORMAL QRS Ordered Tests: Medication Summary Discontinued Medications Generic Name Dose Route Start Last Admin Trade Name Freq PRN Reason Stop Dose Admin Al Hydrox/Mg Hydrox/Simethicone Confirm 09/09/19 17:12 Maalox Es 30 Ml Unit Dose Administered 09/09/19 17:13 Dose 30 ml .ROUTE .STK-MED ONE Lidocaine HCl Confirm 09/09/19 17:12 Xylocaine Hcl Viscous * Administered 09/09/19 17:13 Dose 15 ml .ROUTE .STK-MED ONE Magnesium Hydroxide 45 ml 09/09/19 16:39 09/09/19 17:19 Gi Cocktail 45 Ml (Maalox/Lidocaine) PO 09/09/19 16:40 45 ml STAT ONE Administration Prednisone 60 mg 09/09/19 16:39 09/09/19 17:18 Deltasone 20 Mg PO 09/09/19 16:40 60 mg STAT ONE Administration Prednisone Confirm 09/09/19 17:09 Deltasone 20 Mg Administered 09/09/19 17:10 Dose 60 mg .ROUTE .STK-MED ONE - Progress Progress: improved, pain not gone completely, re-examined Progress Note: 09/09/19 17:43 63 years old is evaluated for worsening sore throat and painful swallowing and also hurting the throat to breathe. He is given GI cocktail and steroid, on reevaluation feeling better. Patient has bilateral clear lungs. No signs of distress. I did not appreciate any swelling in the oropharynx. Patient does have history of acid reflux and I believe patient has some element of esophagitis, recommended increasing dose of omeprazole and also give steroid along with Carafate and recommended continue with antibiotics. Because it is too early to switch to a different antibiotic as he has taken only 1 dose. Patient is maintaining 97% on room air without any signs of distress at all. Do not think patient needs any further work-up and is stable for discharge. Counseled pt/family regarding: diagnosis, need for follow-up - Departure Departure Disposition: Home Clinical Impression: Esophagitis Condition: Stable Critical Care Time: No Referrals: AB VALDOVINOS MD [Primary Care Provider] - (1-2 days for reevaluation) Instructions: Acid Reflux and GERD in Adults (DC) Additional Instructions: Continue with antibiotics. Increase dose of omeprazole to 40 mg daily. Take Tylenol as needed. Follow-up with primary care for reevaluation. Return to ER for increasing pain, swelling in the neck, fever chills or difficulty breathing. Take soft diet. Prescriptions: Prednisone 50 mg PO DAILY #5 tablet Sucralfate 1 gm PO QID #420 ml
[2019-09-09 17:50] VITALS: BP 138/87; PULSE 90
== END 2019-09-09 18:10 | disposition home or self-care (01) ==
LOC: ED 15:57
DX: K20.9 Esophagitis, unspecified (principal); G62.9 Polyneuropathy, unspecified; Z79.899 Other long term (current) drug therapy; I10 Essential (primary) hypertension; K21.9 Gastro-esophageal reflux disease without esophagitis
CPT/HCPCS: 36000; 99284; A9270-GY

== ENCOUNTER 2020-04-08 23:02 | Emergency (ER) | payer BC ==
--- NOTE | 2020-04-08 23:08 | ERPHSYRPT ---
- History of Present Illness Time Seen by Provider: 04/08/20 23:08 Source: patient Exam Limitations: no limitations Physician History: This is a 64-year-old white male who has a history of multiple myeloma and has received 2 rounds of radiation therapy to his right lower extremity. Today was his most recent treatment. This past weekend, patient noticed some dysuria and flank pain bilaterally. Those symptoms have resolved but today he had a low- grade fever that spiked to 102 F. Patient did take Tylenol and he arrives to the emergency department afebrile. Patient denies myalgias and arthralgias. He does have a mild headache. He has no earaches, denies sore throat, denies cough, denies abdominal pain. He no longer has flank pain. He no longer has dysuria. She denies nausea vomiting diarrhea. Patient called his primary care doctor, Dr. Valdovinos. Dr. Valdovinos called in a prescription for Macrodantin and at 8:30 PM, the patient took his first dose of Macrodantin. He also took Tylenol at 9:30 PM. Timing/Duration: today Activites at Onset: none Quality: other Pain Radiation: none Severity of Pain-Max: none Severity of Pain-Current: none Prior abdominal problems: none Sexual intercourse history: non-contributory Allergies/Adverse Reactions: chlorhexidine [From Hibiclens] Allergy (Verified 04/09/20 00:42) ciprofloxacin Allergy (Verified 04/08/20 23:17) morphine Allergy (Verified 04/08/20 23:17) oxycodone [Oxycodone] Allergy (Verified 04/08/20 23:17) prochlorperazine edisylate [From Compazine] Allergy (Verified 04/08/20 23:17) prochlorperazine maleate [From Compazine] Allergy (Verified 04/08/20 23:17) Sulfa (Sulfonamide Antibiotics) [Sulfa(Sulfonamide Antibiotics)] Allergy (Verified 04/08/20 23:17) Home Medications: Metoprolol Succinate 100 mg [Toprol Xl 100 MG] 100 mg PO DAILY 01/29/16 [History] Nifedipine [Nifedipine ER] 30 mg PO DAILY 01/29/16 [History] Acyclovir 1 tab PO BID 04/02/17 [History] Allopurinol 300 mg [Zyloprim 300 mg] 1 tab PO DAILY 04/02/17 [History] Gabapentin 1 tab PO DAILY PRN 04/02/17 [History] Ondansetron [Zofran Odt] 1 tab PO UD PRN 04/02/17 [History] Ascorbic Acid [Vitamin C] 500 mg PO BID 04/09/20 [History] Calcium 500 mg PO BID 04/09/20 [History] Cetirizine HCl [Zyrtec] 20 mg PO DAILY 04/09/20 [History] Cyanocobalamin 1000 Mcg/ml [Cyanocobalamin B-12 1000 MCG/ML] 1,000 mcg SQ DIRECTIONS UNKNOWN 04/09/20 [History] Fluoxetine HCl 10 mg [Prozac 10 mg] 10 mg PO DAILY 04/09/20 [History] Iron 27 mg PO DAILY 04/09/20 [History] Loperamide HCl [Loperamide] 2 mg PO DAILY 04/09/20 [History] Omeprazole 20 mg PO DAILY 04/09/20 [History] Hx Tetanus, Diphtheria Vaccination/Date Given: Yes Hx Influenza Vaccination/Date Given: No Hx Pneumococcal Vaccination/Date Given: No Travel Risk - International Travel Have you traveled outside of the country in past 3 weeks: No - Coronavirus Screening Are you exhibiting any of the following symptoms?: No Symptoms: Fever, Headaches/Body Aches/Fatigue Close contact with a COVID-19 positive Pt in past 14-21 Days: No - Past Medical History Pertinent Past Medical History: Yes Neurological History: Other ENT History: No Pertinent History Cardiac History: Hypertension Respiratory History: Pneumonia Endocrine Medical History: No Pertinent History Musculoskeletal History: Other GI Medical History: Hernia History: No Pertinent History Psycho-Social History: No Pertinent History Male Reproductive Disorders: No Pertinent History Other Medical History: DX WITH MULTIPLE MYELOMA 2008 AND RECURRENCE 2016 WITH HIP REPLACEMENTS BOTH YEARS. RIGHT TKR 2018. HX SHINGLES, HERNIA REPAIR >15 YEARS AGO. GERD, DEPRESSION. HAS PORT LEFT SUBCLAVIAN FOR WEEKLY CHEMO - Past Surgical History Past Surgical History: Yes Neuro Surgical History: No Pertinent History Cardiac: Vascular Surgery Respiratory: No Pertinent History Gastrointestinal: Hernia Repair Genitourinary: No Pertinent History Musculoskeletal: Joint Replacement, Orthopedic Surgery Male Surgical History: No Pertinent History Other Surgical History: KNEE. cvl port - Social History Smoking Status: Former smoker How long have you smoked: quit in 95 Exposure to second hand smoke: No Drug Use: none Patient Lives Alone: No - Review of Systems Constitutional: Fever, Weakness Eyes: No Symptoms Ears, Nose, & Throat: No Symptoms Respiratory: No Symptoms Cardiac: No Symptoms Abdominal/Gastrointestinal: No Symptoms Genitourinary Symptoms: No Symptoms Musculoskeletal: No Symptoms Skin: No Symptoms Neurological: No Symptoms Psychological: No Symptoms Endocrine: No Symptoms Hematologic/Lymphatic: No Symptoms Immunological/Allergic: No Symptoms All Other Systems: Reviewed and Negative - Nursing Vital Signs Nursing Vital Signs: Initial Vital Signs Temperature 98.7 F 04/08/20 23:17 Pulse Rate 84 04/08/20 23:17 Respiratory Rate 22 04/08/20 23:17 Blood Pressure 128/68 04/08/20 23:17 O2 Sat by Pulse Oximetry 98 04/08/20 23:17 Pain Scale Pain Intensity 6 - Physical Exam General Appearance: no apparent distress, alert, anxiety Eye Exam: PERRL/EOMI, eyes nml inspection Ears, Nose, Throat Exam: normal ENT inspection, moist mucous membranes Neck Exam: normal inspection, non-tender, supple, full range of motion Respiratory Exam: normal breath sounds, lungs clear, airway intact, No chest tenderness, No respiratory distress Cardiovascular Exam: regular rate/rhythm, normal heart sounds, normal peripheral pulses Gastrointestinal/Abdomen Exam: soft, normal bowel sounds, No tenderness Rectal Exam: No not done Back Exam: normal inspection, normal range of motion, No CVA tenderness, No vertebral tenderness Extremity Exam: normal inspection, normal range of motion, pelvis stable Neurologic Exam: alert, oriented x 3, cooperative, vp revenue cycle II-XII nml as tested, normal mood/affect, sensation nml Skin Exam: normal color, warm, dry Lymphatic Exam: No adenopathy SpO2 Interpretation: normal O2 Delivery: Room Air - Course Nursing assessment & vital signs reviewed: Yes Ordered Tests: Active Orders 24 hr Category Date Time Status IV Insertion STAT Care 04/08/20 23:53 Active BMP Stat Lab 04/08/20 00:05 Completed CBC W DIFF Stat Lab 04/08/20 00:05 Completed CULTURE,URINE Stat Lab 04/08/20 23:20 Received INFLUENZA A+B TREVOR Stat Lab 04/08/20 00:05 Completed Lactic Acid Stat Lab 04/08/20 23:53 Completed Manual Differential NC Stat Lab 04/08/20 00:05 Completed Andrew Screen Stat Lab 04/08/20 00:05 Completed UA W/RFX UR CULTURE Stat Lab 04/08/20 23:20 Completed Medication Summary Discontinued Medications Generic Name Dose Route Start Last Admin Trade Name Slime PRN Reason Stop Dose Admin Sodium Chloride 1,000 mls @ 999 mls/hr 04/08/20 23:53 04/09/20 00:03 Sodium Chloride 0.9% 1000 Ml IV 04/09/20 00:53 999 mls/hr .Q1H1M STA Administration Sodium Chloride Confirm 04/09/20 00:02 Sodium Chloride 0.9% 1000 Ml Administered 04/09/20 00:03 Dose 1,000 mls @ ud .ROUTE .STK-MED ONE Lab/Rad Data: Laboratory Result Diagrams 04/08/20 00:05 04/08/20 00:05 Laboratory Results 04/09/20 04/08/20 04/08/20 Range/Units 00:05 23:20 00:05 WBC (4.0-10.5) K/mm3 RBC (4.1-5.6) M/mm3 Hgb (12.5-18.0) gm/dl Hct (42-50) % MCV (78-100) fl MCH (26-32) pg MCHC (32-36) g/dl RDW (11.5-14.0) % Plt Count (150-450) K/mm3 MPV (7.5-11.0) fl Sodium (137-145) mmol/L Potassium (3.5-5.1) mmol/L Chloride (98-107) mmol/L Carbon Dioxide (22-30) mmol/L Anion Gap (5-15) MEQ/L BUN (9-20) mg/dL Creatinine (0.66-1.25) mg/dL Estimated GFR ML/MIN Glucose (74-106) mg/dL Lactic Acid 1.1 (0.4-2.0) Calcium (8.4-10.2) mg/dL Urine Color YELLOW (YELLOW) Urine Appearance CLEAR (CLEAR) Urine pH 5.0 (5-6) Ur Specific [place] 1.016 (1.005-1.025) Urine Protein 100 (Negative) Urine Ketones NEGATIVE (NEGATIVE) Urine Blood SMALL (0-5) [place]/ul Urine Nitrite NEGATIVE (NEGATIVE) Urine Bilirubin NEGATIVE (NEGATIVE) Urine Urobilinogen NEGATIVE (0-1) mg/dL Ur Leukocyte Esterase NEGATIVE (NEGATIVE) Urine WBC (Auto) 0-2 (0-5) /HPF Urine RBC (Auto) NONE (0-2) /HPF U Hyaline Cast (Auto) 0-2 (0-2) /LPF U Epithel Cells (Auto) NONE (FEW) /HPF Urine Bacteria (Auto) RARE (NEGATIVE) /HPF Urine Mucus (Auto) SLIGHT (NEGATIVE) /HPF Urine Culture Reflexed YES (NO) Urine Glucose NEGATIVE (NEGATIVE) mg/dL Monoscreen NEGATIVE (Negative) Influenza Type A Ag (NEGATIVE) Influenza Type B Ag (NEGATIVE) 04/08/20 04/08/20 04/08/20 Range/Units 00:05 00:05 00:05 WBC 4.6 (4.0-10.5) K/mm3 RBC 2.79 L (4.1-5.6) M/mm3 Hgb 9.1 L (12.5-18.0) gm/dl Hct 28.3 L (42-50) % MCV 101.4 H (78-100) fl MCH 32.6 H (26-32) pg MCHC 32.2 (32-36) g/dl RDW 18.1 H (11.5-14.0) % Plt Count 90 L (150-450) K/mm3 MPV 10.7 (7.5-11.0) fl Sodium 130 L (137-145) mmol/L Potassium 3.8 (3.5-5.1) mmol/L Chloride 100 (98-107) mmol/L Carbon Dioxide 24 (22-30) mmol/L Anion Gap 10.1 (5-15) MEQ/L BUN 33 H (9-20) mg/dL Creatinine 1.56 H (0.66-1.25) mg/dL Estimated GFR 48.0 ML/MIN Glucose 92 (74-106) mg/dL Lactic Acid (0.4-2.0) Calcium 9.1 (8.4-10.2) mg/dL Urine Color (YELLOW) Urine Appearance (CLEAR) Urine pH (5-6) Ur Specific [place] (1.005-1.025) Urine Protein (Negative) Urine Ketones (NEGATIVE) Urine Blood (0-5) [place]/ul Urine Nitrite (NEGATIVE) Urine Bilirubin (NEGATIVE) Urine Urobilinogen (0-1) mg/dL Ur Leukocyte Esterase (NEGATIVE) Urine WBC (Auto) (0-5) /HPF Urine RBC (Auto) (0-2) /HPF U Hyaline Cast (Auto) (0-2) /LPF U Epithel Cells (Auto) (FEW) /HPF Urine Bacteria (Auto) (NEGATIVE) /HPF Urine Mucus (Auto) (NEGATIVE) /HPF Urine Culture Reflexed (NO) Urine Glucose (NEGATIVE) mg/dL Monoscreen (Negative) Influenza Type A Ag NEGATIVE (NEGATIVE) Influenza Type B Ag NEGATIVE (NEGATIVE) - Progress Progress: improved, pain not gone completely, re-examined Progress Note: 04/09/20 00:57 Medical decision making: This patient has anemia and we have also documented that he has thrombocytopenia. He has no active bleeding. He is afebrile. Influenza a and B as well as mono viral screens are negative. He does complain of a headache and we will provide him with intravenous pain medicine for this. He says that Dilaudid helps him the most. It is unclear to me what had caused the single episode of fever spike. However, it was controlled with Tylenol. He is to continue Tylenol at home. His symptoms might be due to to side effects of radiation. His urinalysis shows no urinary tract infection. He is to contact Dr. Valdovinos and his radiation oncologist to determine plan for further m anagement of his symptoms. Counseled pt/family regarding: lab results, diagnosis, need for follow-up - Departure Departure Disposition: Home Clinical Impression: Headache, Anemia, Thrombocytopenia Condition: Stable Critical Care Time: No Referrals: AB VALDOVINOS MD [Primary Care Provider] - Additional Instructions: Drink plenty of fluids. Call Dr. Valdovinos to determine whether or not he wants to keep you on the Macrodantin antibiotics. Contact your radiation oncologist tomorrow morning to determine whether or not he wants to continue radiation therapy or what other treatment plan/monitoring of your labs and symptoms are necessary.
[2020-04-08 23:30] LABS: Appearance CLEAR (CLEAR); Bacteria RARE /HPF (NEGATIVE); Bilirubin NEGATIVE (NEGATIVE); Blood SMALL Ery/ul (0-5); Glucose NEGATIVE (NEGATIVE); Hyaline Casts 0-2 /LPF (0-2); Ketones NEGATIVE (NEGATIVE); Leukocyte Esterase NEGATIVE (NEGATIVE); Mucus SLIGHT /HPF (NEGATIVE); Nitrite NEGATIVE (NEGATIVE); Protein,Urine Dip 100 (Negative); Specific Gravity 1.016 (1.005-1.025); Urobilinogen NEGATIVE mg/dL (0-1); WBC 0-2 /HPF (0-5)
[2020-04-08] MEDS ORDERED: Sodium Chloride 0.9% 1000 ML 1,000 ML IV STA (23:53)
[2020-04-09] MEDS ORDERED: Sodium Chloride 0.9% 1000 ML 1,000 ML ONE (00:02)
[2020-04-09 00:19] LABS: Hematocrit 28.3 % (42-50); Hemoglobin 9.1 gm/dl (12.5-18.0); Mean Cell Volume 101.4 fl (78-100); Mean Corpuscular Hemoglobin 32.6 pg (26-32); Mean Corpuscular Hgb Concent. 32.2 g/dl (32-36); Mean Platelet Volume 10.7 fl (7.5-11.0); Platelet Count 90 K/mm3 (150-450); Red Blood Count 2.79 M/mm3 (4.1-5.6); Red Cell Distribution Width 18.1 % (11.5-14.0); White Blood Count 4.6 K/mm3 (4.0-10.5)
[2020-04-09 00:25] LABS: ANION GAP 10.1 MEQ/L (5-15); Calcium 9.1 mg/dL (8.4-10.2); Creatinine 1 1.56 mg/dL (0.66-1.25); Potassium 3.8 mmol/L (3.5-5.1)
[2020-04-09 00:35] LABS: INFLUENZA A NEGATIVE (NEGATIVE); INFLUENZA B NEGATIVE (NEGATIVE)
[2020-04-09] MEDS ORDERED: Zofran 4 MG/2 ML VIAL IV ONE (01:01)
[2020-04-09] MEDS ORDERED: Hydromorphone 1 mg/ml Injection IV ONE (01:01)
[2020-04-09] MEDS ORDERED: Zofran 4 MG/2 ML VIAL ONE (01:03)
[2020-04-09] MEDS ORDERED: Hydromorphone 1 mg/ml Injection ONE (01:04)
[2020-04-09 01:27] VITALS: BP 139/72; PULSE 80; O2SAT 95
[2020-04-09 01:33] LABS: Lymphocytes 16 % (24-44); Monocyte 11 % (0.0-12.0); Neutrophils 73 % (36.-66.); Platelet Estimate DECREASED (NORMAL); Total Cells Counted 100
[2020-04-09 01:34] LABS: ANISOCYTOSIS 1+; Macrocytosis 1+
== END 2020-04-09 01:30 | disposition home or self-care (01) ==
LOC: ED 23:02
DX: R51.9 Headache, unspecified (principal); F41.9 Anxiety disorder, unspecified; D69.6 Thrombocytopenia, unspecified; R50.9 Fever, unspecified; Z79.899 Other long term (current) drug therapy; I10 Essential (primary) hypertension; Z85.79 Personal history of other malignant neoplasms of lymphoid, hematopoietic and related tissues
CPT/HCPCS: 36000; 36415; 80048; 81001; 83605; 85025; 86308; 87086; 87400; 96360; 96374; 96375; 99284; J1170; J2405

== ENCOUNTER 2020-06-29 03:57 | Emergency (ER) | payer BC ==
[2020-06-29] MEDS ORDERED: Hydromorphone 1 mg/ml Injection IV ONE ×2 (04:19→06:03)
[2020-06-29] MEDS ORDERED: Sodium Chloride 0.9% 1000 ML 1,000 ML IV STA (04:19)
--- NOTE | 2020-06-29 04:27 | ERPHSYRPT ---
- History of Present Illness Time Seen by Provider: 06/29/20 04:22 Source: patient Exam Limitations: no limitations Physician History: pt has had left earache a few weeks and saw ENT last week who told him to use afrin spray , but pain has gotten worse and now involving left face and jaw.. Hx notable for multiple myeloma (SP bilateral hip replacements for this) with in termittent chronic pain and fevers controlled on chemo. TM red on Left hips are nontender without redness - neurovasc is intact. not aggravated by motion. Timing/Duration: gradual onset Severity: moderate ENT Location: ear (L), facial Prearrival Treatment: prescription meds Modifying Factors: Improves With: lying down Associated Symptoms: ear pain (L), fever, jaw pain Allergies/Adverse Reactions: chlorhexidine [From Hibiclens] Allergy (Verified 06/29/20 04:09) ciprofloxacin Allergy (Verified 06/29/20 04:09) morphine Allergy (Verified 06/29/20 04:09) oxycodone [Oxycodone] Allergy (Verified 06/29/20 04:09) prochlorperazine edisylate [From Compazine] Allergy (Verified 06/29/20 04:09) prochlorperazine maleate [From Compazine] Allergy (Verified 06/29/20 04:09) Sulfa (Sulfonamide Antibiotics) [Sulfa(Sulfonamide Antibiotics)] Allergy (Verified 06/29/20 04:09) Home Medications: Metoprolol Succinate 100 mg [Toprol Xl 100 MG] 100 mg PO DAILY 01/29/16 [History] Nifedipine [Nifedipine ER] 30 mg PO DAILY 01/29/16 [History] Acyclovir 1 tab PO BID 04/02/17 [History] Allopurinol 300 mg [Zyloprim 300 mg] 1 tab PO DAILY 04/02/17 [History] Gabapentin 1 tab PO DAILY PRN 04/02/17 [History] Ondansetron [Zofran Odt] 1 tab PO UD PRN 04/02/17 [History] Ascorbic Acid [Vitamin C] 500 mg PO BID 04/09/20 [History] Calcium 500 mg PO BID 04/09/20 [History] Cetirizine HCl [Zyrtec] 20 mg PO DAILY 04/09/20 [History] Cyanocobalamin 1000 Mcg/ml [Cyanocobalamin B-12 1000 MCG/ML] 1,000 mcg SQ DIRECTIONS UNKNOWN 04/09/20 [History] Fluoxetine HCl 10 mg [Prozac 10 mg] 10 mg PO DAILY 04/09/20 [History] Iron 27 mg PO DAILY 04/09/20 [History] Loperamide HCl [Loperamide] 2 mg PO DAILY 04/09/20 [History] Omeprazole 20 mg PO DAILY 04/09/20 [History] Hx Tetanus, Diphtheria Vaccination/Date Given: Yes Hx Influenza Vaccination/Date Given: No Hx Pneumococcal Vaccination/Date Given: No - Review of Systems Constitutional: Fever, No Chills Eyes: No Symptoms Ears, Nose, & Throat: Ear Pain, Other (left face and jaw pain - tender to touch) Respiratory: No Cough, No Dyspnea Cardiac: No Chest Pain, No Edema, No Syncope Abdominal/Gastrointestinal: No Abdominal Pain, No Nausea, No Vomiting, No Diarrhea Genitourinary Symptoms: No Dysuria Musculoskeletal: No Back Pain, No Neck Pain Skin: No Rash Neurological: No Dizziness, No Focal Weakness, No Sensory Changes Psychological: No Symptoms Endocrine: No Symptoms Hematologic/Lymphatic: Other (multiple myeloma) Immunological/Allergic: Other (on chemo) All Other Systems: Reviewed and Negative - Past Medical History Pertinent Past Medical History: Yes Neurological History: Other ENT History: No Pertinent History Cardiac History: Hypertension Respiratory History: Pneumonia Endocrine Medical History: No Pertinent History Musculoskeletal History: Other GI Medical History: Hernia History: No Pertinent History Psycho-Social History: No Pertinent History Male Reproductive Disorders: No Pertinent History Other Medical History: DX WITH MULTIPLE MYELOMA 2007 AND RECURRENCE 2016 WITH HIP REPLACEMENTS BOTH YEARS. RIGHT TKR 2018. HX SHINGLES, HERNIA REPAIR >15 YEARS AGO. GERD, DEPRESSION. HAS PORT LEFT SUBCLAVIAN FOR WEEKLY CHEMO - Past Surgical History Past Surgical History: Yes Neuro Surgical History: No Pertinent History Cardiac: Vascular Surgery Respiratory: No Pertinent History Gastrointestinal: Hernia Repair Genitourinary: No Pertinent History Musculoskeletal: Joint Replacement, Orthopedic Surgery Male Surgical History: No Pertinent History Other Surgical History: KNEE. cvl port - Social History Smoking Status: Former smoker How long have you smoked: quit in 95 Exposure to second hand smoke: No Drug Use: none Patient Lives Alone: No - Nursing Vital Signs Nursing Vital Signs: Initial Vital Signs Temperature 98.2 F 06/29/20 04:10 Pulse Rate 79 06/29/20 04:10 Respiratory Rate 20 06/29/20 04:10 Blood Pressure 129/72 06/29/20 04:10 O2 Sat by Pulse Oximetry 98 06/29/20 04:10 Pain Scale Pain Intensity 4 - Physical Exam General Appearance: mild distress, alert Eye Exam: bilateral eye: PERRL, EOMI Ear Exam: right ear: TM normal, left ear: TM red, bilateral ear: auricle normal, canal normal Nasal Exam: normal inspection Throat Exam: pharynx normal, moist mucus membranes, No tonsillar exudate Neck Exam: non-tender, supple, trachea midline Cardiovascular/Respiratory Exam: normal breath sounds, regular rate/rhythm Abdominal Exam: non-tender, soft Neurologic Exam: alert, oriented x 3, cooperative, proofer black and white II-XII nml as tested, normal mood/affect, nml cerebellar function, nml station & gait, sensation nml, No motor deficits, No sensory deficit, No EOM palsy Skin Exam: normal color, warm, dry SpO2 Interpretation: normal O2 Delivery: Room Air - Course Nursing assessment & vital signs reviewed: Yes - CT Exams Head CT Interpretation: Tele-radiologist Report, No/Intracranial Hemorrhag Maxillofacial Bones CT Interpretation: Tele-radiologist Report, Other (sinus infection and left middle ear infection) Ordered Tests: Active Orders 24 hr Category Date Time Status IV Insertion STAT Care 06/29/20 04:19 Active FACIAL BONES WO CONTRAST [CT] Stat Exams 06/29/20 04:16 Taken HEAD WITHOUT CONTRAST [CT] Stat Exams 06/29/20 04:17 Taken CBC W DIFF Stat Lab 06/29/20 04:30 Completed CMP Stat Lab 06/29/20 04:30 Completed Medication Summary Discontinued Medications Generic Name Dose Route Start Last Admin Trade Name Freq PRN Reason Stop Dose Admin Hydromorphone HCl 2 mg 06/29/20 04:19 06/29/20 04:34 Hydromorphone 1 Mg/Ml Injection IV 06/29/20 04:20 2 mg STAT ONE Administration Hydromorphone HCl Confirm 06/29/20 04:32 Hydromorphone 1 Mg/Ml Injection Administered 06/29/20 04:33 Dose 1 mg .ROUTE .STK-MED ONE Hydromorphone HCl Confirm 06/29/20 04:35 Hydromorphone 1 Mg/Ml Injection Administered 06/29/20 04:36 Dose 1 mg .ROUTE .STK-MED ONE Sodium Chloride 1,000 mls @ 999 mls/hr 06/29/20 04:19 06/29/20 04:34 Sodium Chloride 0.9% 1000 Ml IV 06/29/20 05:19 999 mls/hr .Q1H1M STA Administration Ceftriaxone Sodium/Dextrose 1 g in 50 mls @ 100 mls/hr 06/29/20 04:33 06/29/20 04:45 Rocephin 1 Gm-D5w 50 Ml Bag IV 06/29/20 05:02 100 mls/hr STAT STA 100 mls/hr Administration Sodium Chloride Confirm 06/29/20 04:32 Sodium Chloride 0.9% 1000 Ml Administered 06/29/20 04:33 Dose 1,000 mls @ ud .ROUTE .STK-MED ONE Ceftriaxone Sodium/Dextrose Confirm 06/29/20 04:44 Rocephin 1 Gm-D5w 50 Ml Bag Administered 06/29/20 04:45 Dose 1 g in 50 mls @ ud IV .STK-MED ONE Lab/Rad Data: Laboratory Result Diagrams 06/29/20 04:30 06/29/20 04:30 Laboratory Results 06/29/20 06/29/20 Range/Units 04:30 04:30 WBC 5.6 (4.0-10.5) K/mm3 RBC 2.75 L (4.1-5.6) M/mm3 Hgb 9.1 L (12.5-18.0) gm/dl Hct 27.8 L (42-50) % MCV 101.1 H (78-100) fl MCH 33.1 H (26-32) pg MCHC 32.7 (32-36) g/dl RDW 17.9 H (11.5-14.0) % Plt Count 262 (150-450) K/mm3 MPV 8.9 (7.5-11.0) fl Gran % 56.8 (36.0-66.0) % Eos # (Auto) 0.08 (0-0.5) Absolute Lymphs (auto) 1.61 (1.0-4.6) Absolute Monos (auto) 0.69 (0.0-1.3) Lymphocytes % 29.0 (24.0-44.0) % Monocytes % 12.4 H (0.0-12.0) % Eosinophils % 1.4 (0.00-5.0) % Basophils % 0.4 (0.0-0.4) % Absolute Granulocytes 3.16 (1.4-6.9) Basophils # 0.02 (0-0.4) Sodium 135 L (137-145) mmol/L Potassium 4.0 (3.5-5.1) mmol/L Chloride 107 (98-107) mmol/L Carbon Dioxide 20 L (22-30) mmol/L Anion Gap 12.2 (5-15) MEQ/L BUN 29 H (9-20) mg/dL Creatinine 1.62 H (0.66-1.25) mg/dL Estimated GFR 46.0 ML/MIN Glucose 98 (74-106) mg/dL Calcium 9.2 (8.4-10.2) mg/dL Total Bilirubin 0.20 (0.2-1.3) mg/dL AST 18 (17-59) U/L ALT 12 (0-50) U/L Alkaline Phosphatase 69 (38-126) U/L Serum Total Protein 6.6 (6.3-8.2) g/dL Albumin 3.9 (3.5-5.0) g/dL - Progress Progress: improved, re-examined Progress Note: 06/29/20 05:18 hgb stable at 9 similar to 04/05 and also cr stable at 1.6 similar 04/05. Counseled pt/family regarding: lab results, diagnosis, need for follow-up, rad results - Departure Departure Disposition: Home Clinical Impression: Multiple myeloma, Renal insufficiency, Anemia, left otitis media with sinusitis Condition: Good Critical Care Time: No Referrals: AB VALDOVINOS MD [Primary Care Provider] - Instructions: Sinusitis, Adult (DC) Additional Instructions: followup with your Dr today or early this week. return meantime if not improving or any symptoms of concern. Prescriptions: Amoxicillin [AMOXIL 250 MG CAPSULE] 250 mg PO TID #60 cap
[2020-06-29] MEDS ORDERED: Sodium Chloride 0.9% 1000 ML 1,000 ML ONE (04:32)
[2020-06-29] MEDS ORDERED: Hydromorphone 1 mg/ml Injection ONE ×3 (04:32→06:05)
[2020-06-29] MEDS ORDERED: ROCEPHIN 1 Gm-D5w 50 ml Bag** 1 G/50 ML IVPB IV STA (04:33)
[2020-06-29] MEDS ORDERED: ROCEPHIN 1 Gm-D5w 50 ml Bag** 1 G/50 ML IVPB IV ONE (04:44)
[2020-06-29 04:45] LABS: Absolute Neutrophil Ct (ANC) 3.16 (1.4-6.9); BASOPHIL % 0.4 % (0.0-0.4); Basophil (Absolute #) 0.02 (0-0.4); Eosinophil % 1.4 % (0.00-5.0); Eosinophil (Absolute #) 0.08 (0-0.5); Hematocrit 27.8 % (42-50); Hemoglobin 9.1 gm/dl (12.5-18.0); Lymphocyte (Absolute #) 1.61 (1.0-4.6); Mean Cell Volume 101.1 fl (78-100); Mean Corpuscular Hemoglobin 33.1 pg (26-32); Mean Corpuscular Hgb Concent. 32.7 g/dl (32-36); Mean Platelet Volume 8.9 fl (7.5-11.0); Monocyte (Absolute #) 0.69 (0.0-1.3); Monocytes % 12.4 % (0.0-12.0); Neutrophil % 56.8 % (36.0-66.0); Platelet Count 262 K/mm3 (150-450); Red Blood Count 2.75 M/mm3 (4.1-5.6); Red Cell Distribution Width 17.9 % (11.5-14.0); White Blood Count 5.6 K/mm3 (4.0-10.5)
[2020-06-29 04:57] LABS: ALBUMIN 3.9 g/dL (3.5-5.0); ANION GAP 12.2 MEQ/L (5-15); BILIRUBIN,TOTAL 0.2 mg/dL (0.2-1.3); Calcium 9.2 mg/dL (8.4-10.2); Creatinine 1 1.62 mg/dL (0.66-1.25); Total Protein 6.6 g/dL (6.3-8.2)
[2020-06-29 05:04] VITALS: O2SAT 97
[2020-06-29 06:07] VITALS: BP 151/88; PULSE 83
--- NOTE | 2020-06-29 09:22 | XRAY ---
Indication: Left earache. History of multiple myeloma. Multiple contiguous axial images obtained through the head without contrast. Comparison: February 28, 2013. Age-appropriate global atrophy with stable right posterior fossa paramedian arachnoid cyst. No acute intracranial hemorrhage, abnormal extra-axial fluid collection, or mass effect. Fourth ventricle is midline without hydrocephalus. Bony calvarium intact again with multiple radiolucencies. There is mild mucosal thickening of both maxillary and both sphenoid sinuses without fluid leveling. Left middle ear and lesser degree left mastoid air cells demonstrate new partial opacification both presumed inflammatory. Impression: 1. New partial opacification left middle ear and left mastoid air cells both presumed inflammatory. 2. No acute intracranial abnormalities. 3. Again multiple bony radiolucencies favoring clinically reported multiple myeloma. 4. Incidental paranasal sinus disease. Comment: Preliminary interpretation was made by [facility]. No critical discrepancy.
--- NOTE | 2020-06-29 09:26 | XRAY ---
Indication: Left earache. History multiple myeloma. Multiple contiguous axial images obtained through the facial bones. Sagittal and coronal reformatted images obtained. Comparison: None There are a few tiny bony lytic lesions favoring clinically reported multiple myeloma. No acute fracture, osseous destructive process, or radiopaque foreign body. Orbits including roof, hankins, and floors are intact. There is mild mucosal thickening of both maxillary and lesser degree both sphenoid/right frontal sinuses. Nasal passages are clear with mild nasal septal deviation to the left. Remaining visualized noncontrasted soft tissues are unremarkable. There is partial opacification of the left middle ear and incompletely visualized left mastoid air cells both presumed inflammatory. CT head reported separately. Impression: 1. Opacification left middle ear and left mastoid air cells presumed inflammatory. 2. Tiny bony lytic lesions favoring clinically reported multiple myeloma. 3. Incidental paranasal sinus disease and nasal septal deviation. Comment: Preliminary interpretation was made by [facility]. No critical discrepancy.
== END 2020-06-29 06:13 | disposition home or self-care (01) ==
LOC: ED 03:57
DX: C90.00 Multiple myeloma not having achieved remission (principal); N28.9 Disorder of kidney and ureter, unspecified; D63.8 Anemia in other chronic diseases classified elsewhere; H65.92 Unspecified nonsuppurative otitis media, left ear; J32.8 Other chronic sinusitis; H92.02 Otalgia, left ear; R50.9 Fever, unspecified; Z79.899 Other long term (current) drug therapy
CPT/HCPCS: 36000; 36415; 70450; 70486; 80053; 85025; 96360; 96374; 99284; J0696; J1170; J1642

== ENCOUNTER 2020-07-17 03:30 | Observation (INO) | payer BC ==
[2020-07-17] MEDS ORDERED: BABY ASPIRIN 81 MG CHEW PO ONE (03:51)
[2020-07-17] MEDS ORDERED: Sodium Chloride 0.9% 1000 ML 1,000 ML IV STA (03:51)
[2020-07-17] MEDS ORDERED: Maxipime 2 GM** 2 G in Sodium Chloride 0.9% 100 ML IVPB 100 ML IV STA (03:53)
[2020-07-17] MEDS ORDERED: Maxipime 2 GM ONE (03:58)
[2020-07-17] MEDS ORDERED: Sodium Chloride 0.9% 1000 ML 1,000 ML ONE (03:58)
[2020-07-17] MEDS ORDERED: Sodium Chloride 100ML MINI-BAG PLUS 100 ML IV ONE (03:59)
--- NOTE | 2020-07-17 04:04 | ERPHSYRPT ---
- History of Present Illness Time Seen by Provider: 07/17/20 03:33 Source: patient Exam Limitations: no limitations Patient Subjective Stated Complaint: Patient stated " I felt like my lip was warm so I checked my Temp and it was 102 under my arm so I told my we neede d to go to ER." Triage Nursing Assessment: Patient arrived to ED and ambulated to room with lim with slow and steady gait. Patient A/O times 4. Patient able to follow directi ons without difficulty. Lungs diminished A/P throughout. Patient denies SOB. Patient denies chest pain. 02 sat 98% on room air. Cap refill < 3 seconds. No S/S of acute respiratory distress noted. Temp taken via forehead and temp 99.4. Patient stated he had chemotherapy today. Patient states he has generalized pain all over from his head to his back to his legs. 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 No dependent edema noted. Physician History: Patient is here for continued ear pain. Patient recently seen for left otitis media. Was seen in the emergency department. At that point time he had a head CT, CT max face. Patient states that he took his entire dose of amoxicillin. He has been feeling improved. Patient does have multiple myeloma, did take Tylenol prior to arrival. No fever here. Patient states he is getting chemo. States that he has been following with his cancer doctor and his regular doctor, Dr. Valdovinos. They have seen him for this ear pain. No new or different interventions. Patient feels improved here. No neuro complaints. No fever here. Patient states he does have some chronic back pain. He states that he is scheduled for an MRI to look to see if the cancer has spread to his pelvis bones. This is not a primary concern of his tonight. Timing/Duration: today Severity: mild Allergies/Adverse Reactions: chlorhexidine [From Hibiclens] Allergy (Verified 07/17/20 03:39) ciprofloxacin Allergy (Verified 07/17/20 03:39) morphine Allergy (Verified 07/17/20 03:39) oxycodone [Oxycodone] Allergy (Verified 07/17/20 03:39) prochlorperazine edisylate [From Compazine] Allergy (Verified 07/17/20 03:39) prochlorperazine maleate [From Compazine] Allergy (Verified 07/17/20 03:39) Sulfa (Sulfonamide Antibiotics) [Sulfa(Sulfonamide Antibiotics)] Allergy (Verified 07/17/20 03:39) Home Medications: Metoprolol Succinate 100 mg [Toprol Xl 100 MG] 100 mg PO DAILY 01/29/16 [History] Nifedipine [Nifedipine ER] 30 mg PO DAILY 01/29/16 [History] Allopurinol 300 mg [Zyloprim 300 mg] 1 tab PO DAILY 04/02/17 [History] Ascorbic Acid [Vitamin C] 500 mg PO BID 04/09/20 [History] Calcium 500 mg PO BID 04/09/20 [History] Cetirizine HCl [Zyrtec] 20 mg PO DAILY 04/09/20 [History] Cyanocobalamin 1000 Mcg/ml [Cyanocobalamin B-12 1000 MCG/ML] 1,000 mcg SQ DIRECTIONS UNKNOWN 04/09/20 [History] Fluoxetine HCl 10 mg [Prozac 10 mg] 10 mg PO DAILY 04/09/20 [History] Hx Tetanus, Diphtheria Vaccination/Date Given: Yes Hx Influenza Vaccination/Date Given: No Hx Pneumococcal Vaccination/Date Given: No Immunizations Up to Date: Yes Travel Risk - International Travel Have you traveled outside of the country in past 3 weeks: No - Coronavirus Screening Are you exhibiting any of the following symptoms?: Yes Symptoms: Fever, Headaches/Body Aches/Fatigue Close contact with a COVID-19 positive Pt in past 14-21 Days: No - Vaccine Status Have you recieved a Covid-19 vaccination: No - Review of Systems Constitutional: Fever, No Chills Eyes: No Symptoms Ears, Nose, & Throat: Ear Pain, Nose Congestion, Sinus Drainage Respiratory: No Cough, No Dyspnea Cardiac: No Chest Pain, No Edema, No Syncope Abdominal/Gastrointestinal: No Abdominal Pain, No Nausea, No Vomiting, No Diarrhea Genitourinary Symptoms: No Dysuria Musculoskeletal: No Back Pain, No Neck Pain Skin: No Rash Neurological: No Dizziness, No Focal Weakness, No Sensory Changes Psychological: No Symptoms Endocrine: No Symptoms All Other Systems: Reviewed and Negative - Past Medical History Pertinent Past Medical History: Yes Neurological History: Other ENT History: No Pertinent History Cardiac History: Hypertension Respiratory History: Pneumonia Endocrine Medical History: No Pertinent History Musculoskeletal History: Other GI Medical History: Hernia History: No Pertinent History Psycho-Social History: No Pertinent History Male Reproductive Disorders: No Pertinent History Other Medical History: DX WITH MULTIPLE MYELOMA 2008 AND RECURRENCE 2016 WITH HIP REPLACEMENTS BOTH YEARS. RIGHT TKR 2018. HX SHINGLES, HERNIA REPAIR >15 YEARS AGO. GERD, DEPRESSION. HAS PORT LEFT SUBCLAVIAN FOR WEEKLY CHEMO - Past Surgical History Past Surgical History: Yes Neuro Surgical History: No Pertinent History Cardiac: Vascular Surgery Respiratory: No Pertinent History Gastrointestinal: Hernia Repair Genitourinary: No Pertinent History Musculoskeletal: Joint Replacement, Orthopedic Surgery Male Surgical History: No Pertinent History Other Surgical History: R Knee Replacement. Bilateral Hips replaced R/T CA - Social History Smoking Status: Former smoker How long have you smoked: quit in Exposure to second hand smoke: No Drug Use: none Patient Lives Alone: No - Nursing Vital Signs Nursing Vital Signs: Initial Vital Signs Temperature 99.1 F 07/17/20 03:40 Pulse Rate 109 H 07/17/20 03:40 Respiratory Rate 20 07/17/20 03:40 Blood Pressure 125/68 07/17/20 03:40 O2 Sat by Pulse Oximetry 98 07/17/20 03:40 Pain Scale Pain Intensity 8 - Physical Exam General Appearance: no apparent distress, alert Eye Exam: PERRL/EOMI, eyes nml inspection Ears, Nose, Throat Exam: normal ENT inspection, TMs normal, pharynx normal, moist mucous membranes Neck Exam: normal inspection, non-tender, supple, full range of motion Respiratory Exam: normal breath sounds, lungs clear, No respiratory distress Cardiovascular Exam: regular rate/rhythm, normal heart sounds, normal peripheral pulses Gastrointestinal/Abdomen Exam: soft, normal bowel sounds, No tenderness, No mass Back Exam: normal inspection, normal range of motion, No CVA tenderness, No vertebral tenderness Extremity Exam: normal inspection, normal range of motion, pelvis stable Neurologic Exam: alert, oriented x 3, cooperative, normal mood/affect, nml cerebellar function, nml station & gait, sensation nml, No motor deficits Skin Exam: normal color, warm, dry, No rash Lymphatic Exam: No adenopathy SpO2 Interpretation: normal SpO2: 98 Comments: 07/17/20 04:02 No trismus, able to fully extend neck, normal range of motion of neck without pain. Uvula is midline, no swelling of the mouth, noraml oropharynx. No exudate, no signs of meningitis, no floor of mouth swelling, no hot potato voice on exam. No buccal swelling, no gum bleeding, no signs of tooth abscess/infection. No obvious deformity, sensation intact, 2+ capillary refill, 2 point tactile discrimination intact. 5 out of 5 strength. Full range of motion without pain. Compartments are soft, nontender. Overlying skin shows no tenting, bruising, ecchymosis. No saddle anesthesia. - Course Nursing assessment & vital signs reviewed: Yes EKG Interpreted by Me: Sinus Rhythm Ordered Tests: Active Orders 24 hr Category Date Time Status Admit as Inpatient ROUTINE Care 07/17/20 05:03 Ordered Fibre Optic Cable Splicer STAT Care 07/17/20 03:52 Active Code Status Order ROUTINE Care 07/17/20 05:03 Ordered EKG-ER Only STAT Care 07/17/20 03:51 Active IV Care Q6H Care 07/17/20 05:03 Ordered IV Insertion STAT Care 07/17/20 03:51 Active House Regular Diet Diet 07/17/20 Breakfast Ordered CHEST 1 VIEW (PORTABLE) Stat Exams 07/17/20 03:51 Taken BLOOD CULTURE Stat Lab 07/17/20 04:10 Received CBC W DIFF AM.LAB Lab 07/18/20 04:00 Ordered CBC W DIFF Stat Lab 07/17/20 04:10 Completed CMP AM.LAB Lab 07/18/20 04:00 Ordered CMP Stat Lab 07/17/20 04:10 Completed Lactic Acid AM.LAB Lab 07/18/20 04:00 Ordered Lactic Acid Urgent Lab 07/17/20 04:57 Completed Manual Differential NC Stat Lab 07/17/20 04:10 Completed TROPONIN Q3H Lab 07/17/20 04:10 Completed TROPONIN Q3H Lab 07/17/20 07:00 Ordered TROPONIN Q3H Lab 07/17/20 10:00 Ordered TROPONIN Q3H Lab 07/17/20 13:00 Ordered TROPONIN Q3H Lab 07/17/20 16:00 Ordered UA W/RFX UR CULTURE Stat Lab 07/17/20 04:55 Ordered Transfer Order Routine Transfer 07/17/20 Ordered Medication Summary Discontinued Medications Generic Name Dose Route Start Last Admin Trade Name Freq PRN Reason Stop Dose Admin Aspirin 324 mg 07/17/20 03:51 07/17/20 04:07 Baby Aspirin 81 Mg Chew PO 07/17/20 03:52 324 mg STAT ONE Administration Cefepime HCl Confirm 07/17/20 03:58 Maxipime 2 Gm Administered 07/17/20 03:59 Dose 2 g .ROUTE .STK-MED ONE Sodium Chloride 1,000 mls @ 999 mls/hr 07/17/20 03:51 07/17/20 04:05 Sodium Chloride 0.9% 1000 Ml IV 07/17/20 04:51 999 mls/hr .Q1H1M STA Administration Cefepime HCl 2 g/ Sodium 100 mls @ 200 mls/hr 07/17/20 03:53 07/17/20 04:05 Chloride IV 07/17/20 04:22 200 mls/hr STAT STA Administration Sodium Chloride Confirm 07/17/20 03:58 Sodium Chloride 0.9% 1000 Ml Administered 07/17/20 03:59 Dose 1,000 mls @ ud .ROUTE .STK-MED ONE Sodium Chloride Confirm 07/17/20 03:59 Sodium Chloride 100ml Mini-Bag Plus Administered 07/17/20 04:00 Dose 100 mls @ ud IV .STK-MED ONE Lab/Rad Data: Laboratory Result Diagrams 07/17/20 04:10 07/17/20 04:10 Laboratory Results 07/17/20 07/17/20 07/17/20 Range/Units 04:57 04:55 04:10 WBC (4.0-10.5) K/mm3 RBC (4.1-5.6) M/mm3 Hgb (12.5-18.0) gm/dl Hct (42-50) % MCV (78-100) fl MCH (26-32) pg MCHC (32-36) g/dl RDW (11.5-14.0) % Plt Count (150-450) K/mm3 MPV (7.5-11.0) fl Sodium (137-145) mmol/L Potassium (3.5-5.1) mmol/L Chloride (98-107) mmol/L Carbon Dioxide (22-30) mmol/L Anion Gap (5-15) MEQ/L BUN (9-20) mg/dL Creatinine (0.66-1.25) mg/dL Estimated GFR ML/MIN Glucose (74-106) mg/dL Lactic Acid 1.9 (0.4-2.0) Calcium (8.4-10.2) mg/dL Total Bilirubin (0.2-1.3) mg/dL AST (17-59) U/L ALT (0-50) U/L Alkaline Phosphatase (38-126) U/L Troponin I < 0.012 (0.000-0.034) ng/mL Serum Total Protein (6.3-8.2) g/dL Albumin (3.5-5.0) g/dL Urine Color YELLOW (YELLOW) Urine Appearance CLEAR (CLEAR) Urine pH 5.0 (5-6) Ur Specific [place] 1.016 (1.005-1.025) Urine Protein 30 (Negative) Urine Ketones NEGATIVE (NEGATIVE) Urine Blood NEGATIVE (0-5) [place]/ul Urine Nitrite NEGATIVE (NEGATIVE) Urine Bilirubin NEGATIVE (NEGATIVE) Urine Urobilinogen NEGATIVE (0-1) mg/dL Ur Leukocyte Esterase NEGATIVE (NEGATIVE) Urine WBC (Auto) NONE (0-5) /HPF Urine RBC (Auto) NONE (0-2) /HPF U Epithel Cells (Auto) NONE (FEW) /HPF Urine Bacteria (Auto) NONE (NEGATIVE) /HPF Urine Mucus (Auto) SLIGHT (NEGATIVE) /HPF Urine Culture Reflexed NO (NO) Urine Glucose NEGATIVE (NEGATIVE) mg/dL 07/17/20 07/17/20 Range/Units 04:10 04:10 WBC 12.9 H (4.0-10.5) K/mm3 RBC 2.79 L (4.1-5.6) M/mm3 Hgb 9.1 L (12.5-18.0) gm/dl Hct 28.7 L (42-50) % MCV 102.9 H (78-100) fl MCH 32.6 H (26-32) pg MCHC 31.7 L (32-36) g/dl RDW 17.5 H (11.5-14.0) % Plt Count 215 (150-450) K/mm3 MPV 9.0 (7.5-11.0) fl Sodium 137 (137-145) mmol/L Potassium 4.1 (3.5-5.1) mmol/L Chloride 104 (98-107) mmol/L Carbon Dioxide 22 (22-30) mmol/L Anion Gap 14.8 (5-15) MEQ/L BUN 35 H (9-20) mg/dL Creatinine 1.38 H (0.66-1.25) mg/dL Estimated GFR 55.3 ML/MIN Glucose 100 (74-106) mg/dL Lactic Acid (0.4-2.0) Calcium 10.8 H (8.4-10.2) mg/dL Total Bilirubin 0.30 (0.2-1.3) mg/dL AST 18 (17-59) U/L ALT 14 (0-50) U/L Alkaline Phosphatase 63 (38-126) U/L Troponin I (0.000-0.034) ng/mL Serum Total Protein 6.5 (6.3-8.2) g/dL Albumin 3.8 (3.5-5.0) g/dL Urine Color (YELLOW) Urine Appearance (CLEAR) Urine pH (5-6) Ur Specific [place] (1.005-1.025) Urine Protein (Negative) Urine Ketones (NEGATIVE) Urine Blood (0-5) [place]/ul Urine Nitrite (NEGATIVE) Urine Bilirubin (NEGATIVE) Urine Urobilinogen (0-1) mg/dL Ur Leukocyte Esterase (NEGATIVE) Urine WBC (Auto) (0-5) /HPF Urine RBC (Auto) (0-2) /HPF U Epithel Cells (Auto) (FEW) /HPF Urine Bacteria (Auto) (NEGATIVE) /HPF Urine Mucus (Auto) (NEGATIVE) /HPF Urine Culture Reflexed (NO) Urine Glucose (NEGATIVE) mg/dL - Progress Progress: improved Progress Note: 07/17/20 04:03 We will obtain basic labs, fluids, will give a dose of cefepime here. Chest x- ray, UA, look for source of infection. Lactic acid to see if patient is acutely septic or not. 07/17/20 05:06 Patient does have a new leukocytosis here. No obvious pneumonia on chest x-ray. Cefepime completed. Lactic acid is normal. Overall, patient has fever, tachycardia, new leukocytosis in a chemotherapy patient. Therefore, I do believe we should admit for continued monitoring, antibiotics, grow out the blood cultures. I did discuss over the phone with on-call physician, Dr. Valdovinos. He accepted the patient to his service and will see patient in the morning. Discussed with .: Domonique Will see patient in: hospital (full admit) Counseled pt/family regarding: lab results, diagnosis, need for follow-up, rad results - Departure Departure Disposition: In-patient Admission Clinical Impression: Fever, unknown origin Condition: Stable Critical Care Time: No Referrals: AB VALDOVINOS MD [Primary Care Provider] -
[2020-07-17 04:33] LABS: Hematocrit 28.7 % (42-50); Hemoglobin 9.1 gm/dl (12.5-18.0); Mean Cell Volume 102.9 fl (78-100); Mean Corpuscular Hemoglobin 32.6 pg (26-32); Mean Corpuscular Hgb Concent. 31.7 g/dl (32-36); Platelet Count 215 K/mm3 (150-450); Red Blood Count 2.79 M/mm3 (4.1-5.6); Red Cell Distribution Width 17.5 % (11.5-14.0); White Blood Count 12.9 K/mm3 (4.0-10.5)
[2020-07-17 04:36] LABS: ALBUMIN 3.8 g/dL (3.5-5.0); ANION GAP 14.8 MEQ/L (5-15); BILIRUBIN,TOTAL 0.3 mg/dL (0.2-1.3); Calcium 10.8 mg/dL (8.4-10.2); Creatinine 1 1.38 mg/dL (0.66-1.25); EST GLOMERULAR FILTRATION RATE 55.3 ML/MIN; Potassium 4.1 mmol/L (3.5-5.1); Total Protein 6.5 g/dL (6.3-8.2)
[2020-07-17 05:04] LABS: Appearance CLEAR (CLEAR); Bilirubin NEGATIVE (NEGATIVE); Blood NEGATIVE Ery/ul (0-5); Glucose NEGATIVE (NEGATIVE); Ketones NEGATIVE (NEGATIVE); Leukocyte Esterase NEGATIVE (NEGATIVE); Mucus SLIGHT /HPF (NEGATIVE); Nitrite NEGATIVE (NEGATIVE); Protein,Urine Dip 30 (Negative); Specific Gravity 1.016 (1.005-1.025); Urobilinogen NEGATIVE mg/dL (0-1)
[2020-07-17] MEDS: Sodium Chloride 0.9% 1000 ML 1,000 ML IV SCH ×3 (05:21→21:35)
[2020-07-17 05:40] LABS: Basophil 4 % (0.0-1.0); Eosinophil 1 % (0.00-3.0); Lymphocytes 8 % (24-44); Monocyte 4 % (0.0-12.0); Neutrophils 83 % (36.-66.); Total Cells Counted 100
[2020-07-17 05:41] LABS: Platelet Estimate NORMAL (NORMAL)
[2020-07-17 06:05] LABS: INFLUENZA A NEGATIVE (NEGATIVE); INFLUENZA B NEGATIVE (NEGATIVE); RESPIRATORY SYNCTIAL VIRUS NEGATIVE (Negative)
--- NOTE | 2020-07-17 08:43 | PCM.HP ---
History of Present Illness - Chief Complaint Chief Complaint: Fever of unknown origin History of Present Illness: is a 64 year old male with a history of multiple myeloma, he had chemotherapy yesterday and later in the day developed fever, has usual severe low back and leg pain from bone disease. He has no cough, no urinary symptoms, no vomiting or diarrhea, no abd pain. he states prior to his fever he was seated with a heating pad against his back for a prolonged period, uncertain if this has affected his temp. no fever since admission. - Review of Systems Constitutional: Fever, Fatigue Respiratory: No Cough, No Short Of Breath Cardiac: No Chest Pain, No Edema, No Syncope Abdominal/Gastrointestinal: No Abdominal Pain, No Nausea, No Vomiting, No Diarrhea Genitourinary Symptoms: No Dysuria Musculoskeletal: Back Pain All Other Systems: Reviewed and Negative Medications & Allergies Home Medications: Home Medication List Metoprolol Succinate 100 mg [Toprol Xl 100 MG] 100 mg PO DAILY 01/29/16 [History Confirmed 07/17/20] Nifedipine [Nifedipine ER] 30 mg PO DAILY 01/29/16 [History Confirmed 07/17/20] Allopurinol 300 mg [Zyloprim 300 mg] 1 tab PO DAILY 04/02/17 [History Confirmed 07/17/20] Ascorbic Acid [Vitamin C] 500 mg PO BID 04/09/20 [History Confirmed 07/17/20] Calcium 500 mg PO BID 04/09/20 [History Confirmed 07/17/20] Cetirizine HCl [Zyrtec] 20 mg PO DAILY 04/09/20 [History Confirmed 07/17/20] Cyanocobalamin 1000 Mcg/ml [Cyanocobalamin B-12 1000 MCG/ML] 1,000 mcg SQ DIRECTIONS UNKNOWN 04/09/20 [History Confirmed 07/17/20] Fluoxetine HCl 10 mg [Prozac 10 mg] 10 mg PO DAILY 04/09/20 [History Confirmed 07/17/20] Allergies/Adverse Reactions: Allergies Allergy/AdvReac Type Severity Reaction Status Date / Time chlorhexidine Allergy Verified 07/17/20 03:39 [From Hibiclens] ciprofloxacin Allergy Verified 07/17/20 03:39 morphine Allergy Verified 07/17/20 03:39 oxycodone [Oxycodone] Allergy Verified 07/17/20 03:39 prochlorperazine edisylate Allergy Verified 07/17/20 03:39 [From Compazine] prochlorperazine maleate Allergy Verified 07/17/20 03:39 [From Compazine] Sulfa (Sulfonamide Allergy Verified 07/17/20 03:39 Antibiotics) [Sulfa(Sulfonamide Antibiotics)] - Past Medical History Past Medical History: Yes Neurological History: Other ENT History: No Pertinent History Cardiac History: Hypertension Respiratory History: Pneumonia Endocrine Medical History: No Pertinent History Musculoskelatal History: Other GI Medical History: Hernia History: No Pertinent History Pyscho-Social History: No Pertinent History Male Reproductive Disorders: No Pertinent History Comment: DX WITH MULTIPLE MYELOMA 2007 AND RECURRENCE 2016 WITH HIP REPLACEMENTS BOTH YEARS. RIGHT TKR 2018. HX SHINGLES, HERNIA REPAIR >15 YEARS AGO. GERD, DEPRESSION. HAS PORT LEFT SUBCLAVIAN FOR WEEKLY CHEMO - Past Surgical History Past Surgical History: Yes Neuro Surgical History: No Pertinent History Cardiac History: Vascular Surgery Respiratory Surgery: No Pertinent History GI Surgical History: Hernia Repair Genitourinary Surgical Hx: No Pertinent History Musculskeletal Surgical Hx: Joint Replacement, Orthopedic Surgery Male Surgical History: No Pertinent History Other Surgical History: R Knee Replacement. Bilateral Hips replaced R/T CA - Social History Smoking Status: Former smoker How long have you smoked: quit in Exposure to second hand smoke: No Alcohol: None Drug Use: none - Physical Exam Vital Signs: Vital Signs - 24 hr Temp Pulse Resp BP Pulse Ox 07/17/20 08:03 98.4 F 86 18 126/60 94 L 07/17/20 07:59 98.4 F 86 18 126/60 94 L 07/17/20 07:57 98.4 F 86 18 126/60 94 L 07/17/20 06:30 86 16 120/70 95 07/17/20 06:00 88 17 121/68 94 L 07/17/20 05:07 98 07/17/20 05:00 95 H 18 119/63 94 L 07/17/20 04:34 97 H 22 124/63 95 07/17/20 03:40 99.1 F 109 H 20 125/68 98 General Appearance: no apparent distress Neurologic Exam: alert, oriented x 3 Respiratory Exam: normal breath sounds, lungs clear, No respiratory distress Cardiovascular Exam: regular rate/rhythm, normal heart sounds, normal peripheral pulses Gastrointestinal/Abdomen Exam: soft, normal bowel sounds, No tenderness, No mass Extremity Exam: normal inspection, normal range of motion, pelvis stable Skin Exam: normal color, warm, dry, No rash Results - Labs Lab/Micro Results: Lab Results-Last 24 Hours 07/17/20 07/17/20 07/17/20 Range/Units 04:10 04:10 04:10 WBC 12.9 H (4.0-10.5) K/mm3 RBC 2.79 L (4.1-5.6) M/mm3 Hgb 9.1 L (12.5-18.0) gm/dl Hct 28.7 L (42-50) % MCV 102.9 H (78-100) fl MCH 32.6 H (26-32) pg MCHC 31.7 L (32-36) g/dl RDW 17.5 H (11.5-14.0) % Plt Count 215 (150-450) K/mm3 MPV 9.0 (7.5-11.0) fl Segmented Neutrophils 83 H (36.-66.) % Lymphocytes (Manual) 8 L (24-44) % Monocytes (Manual) 4 (0.0-12.0) % Eosinophils (Manual) 1 (0.00-3.0) % Basophils (Manual) 4 H (0.0-1.0) % Platelet Estimate NORMAL (NORMAL) RBC Morphology NORMAL Sodium 137 (137-145) mmol/L Potassium 4.1 (3.5-5.1) mmol/L Chloride 104 (98-107) mmol/L Carbon Dioxide 22 (22-30) mmol/L Anion Gap 14.8 (5-15) MEQ/L BUN 35 H (9-20) mg/dL Creatinine 1.38 H (0.66-1.25) mg/dL Estimated GFR 55.3 ML/MIN Glucose 100 (74-106) mg/dL Lactic Acid (0.4-2.0) Calcium 10.8 H (8.4-10.2) mg/dL Total Bilirubin 0.30 (0.2-1.3) mg/dL AST 18 (17-59) U/L ALT 14 (0-50) U/L Alkaline Phosphatase 63 (38-126) U/L Troponin I < 0.012 (0.000-0.034) ng/mL Serum Total Protein 6.5 (6.3-8.2) g/dL Albumin 3.8 (3.5-5.0) g/dL Urine Color (YELLOW) Urine Appearance (CLEAR) Urine pH (5-6) Ur Specific [place] (1.005-1.025) Urine Protein (Negative) Urine Ketones (NEGATIVE) Urine Blood (0-5) [place]/ul Urine Nitrite (NEGATIVE) Urine Bilirubin (NEGATIVE) Urine Urobilinogen (0-1) mg/dL Ur Leukocyte Esterase (NEGATIVE) Urine WBC (Auto) (0-5) /HPF Urine RBC (Auto) (0-2) /HPF U Epithel Cells (Auto) (FEW) /HPF Urine Bacteria (Auto) (NEGATIVE) /HPF Urine Mucus (Auto) (NEGATIVE) /HPF Urine Culture Reflexed (NO) Urine Glucose (NEGATIVE) mg/dL Influenza Type A Ag (NEGATIVE) Influenza Type B Ag (NEGATIVE) RSV (PCR) (Negative) SARS-CoV-2 (PCR) (NEGATIVE) 07/17/20 07/17/20 07/17/20 Range/Units 04:55 04:57 05:16 WBC (4.0-10.5) K/mm3 RBC (4.1-5.6) M/mm3 Hgb (12.5-18.0) gm/dl Hct (42-50) % MCV (78-100) fl MCH (26-32) pg MCHC (32-36) g/dl RDW (11.5-14.0) % Plt Count (150-450) K/mm3 MPV (7.5-11.0) fl Segmented Neutrophils (36.-66.) % Lymphocytes (Manual) (24-44) % Monocytes (Manual) (0.0-12.0) % Eosinophils (Manual) (0.00-3.0) % Basophils (Manual) (0.0-1.0) % Platelet Estimate (NORMAL) RBC Morphology Sodium (137-145) mmol/L Potassium (3.5-5.1) mmol/L Chloride (98-107) mmol/L Carbon Dioxide (22-30) mmol/L Anion Gap (5-15) MEQ/L BUN (9-20) mg/dL Creatinine (0.66-1.25) mg/dL Estimated GFR ML/MIN Glucose (74-106) mg/dL Lactic Acid 1.9 (0.4-2.0) Calcium (8.4-10.2) mg/dL Total Bilirubin (0.2-1.3) mg/dL AST (17-59) U/L ALT (0-50) U/L Alkaline Phosphatase (38-126) U/L Troponin I (0.000-0.034) ng/mL Serum Total Protein (6.3-8.2) g/dL Albumin (3.5-5.0) g/dL Urine Color YELLOW (YELLOW) Urine Appearance CLEAR (CLEAR) Urine pH 5.0 (5-6) Ur Specific [place] 1.016 (1.005-1.025) Urine Protein 30 (Negative) Urine Ketones NEGATIVE (NEGATIVE) Urine Blood NEGATIVE (0-5) [place]/ul Urine Nitrite NEGATIVE (NEGATIVE) Urine Bilirubin NEGATIVE (NEGATIVE) Urine Urobilinogen NEGATIVE (0-1) mg/dL Ur Leukocyte Esterase NEGATIVE (NEGATIVE) Urine WBC (Auto) NONE (0-5) /HPF Urine RBC (Auto) NONE (0-2) /HPF U Epithel Cells (Auto) NONE (FEW) /HPF Urine Bacteria (Auto) NONE (NEGATIVE) /HPF Urine Mucus (Auto) SLIGHT (NEGATIVE) /HPF Urine Culture Reflexed NO (NO) Urine Glucose NEGATIVE (NEGATIVE) mg/dL Influenza Type A Ag NEGATIVE (NEGATIVE) Influenza Type B Ag NEGATIVE (NEGATIVE) RSV (PCR) NEGATIVE (Negative) SARS-CoV-2 (PCR) NEGATIVE (NEGATIVE) 07/17/20 07/17/20 Range/Units 07:15 07:15 WBC (4.0-10.5) K/mm3 RBC (4.1-5.6) M/mm3 Hgb (12.5-18.0) gm/dl Hct (42-50) % MCV (78-100) fl MCH (26-32) pg MCHC (32-36) g/dl RDW (11.5-14.0) % Plt Count (150-450) K/mm3 MPV (7.5-11.0) fl Segmented Neutrophils (36.-66.) % Lymphocytes (Manual) (24-44) % Monocytes (Manual) (0.0-12.0) % Eosinophils (Manual) (0.00-3.0) % Basophils (Manual) (0.0-1.0) % Platelet Estimate (NORMAL) RBC Morphology Sodium (137-145) mmol/L Potassium (3.5-5.1) mmol/L Chloride (98-107) mmol/L Carbon Dioxide (22-30) mmol/L Anion Gap (5-15) MEQ/L BUN (9-20) mg/dL Creatinine (0.66-1.25) mg/dL Estimated GFR ML/MIN Glucose (74-106) mg/dL Lactic Acid 1.1 (0.4-2.0) Calcium (8.4-10.2) mg/dL Total Bilirubin (0.2-1.3) mg/dL AST (17-59) U/L ALT (0-50) U/L Alkaline Phosphatase (38-126) U/L Troponin I 0.012 (0.000-0.034) ng/mL Serum Total Protein (6.3-8.2) g/dL Albumin (3.5-5.0) g/dL Urine Color (YELLOW) Urine Appearance (CLEAR) Urine pH (5-6) Ur Specific [place] (1.005-1.025) Urine Protein (Negative) Urine Ketones (NEGATIVE) Urine Blood (0-5) [place]/ul Urine Nitrite (NEGATIVE) Urine Bilirubin (NEGATIVE) Urine Urobilinogen (0-1) mg/dL Ur Leukocyte Esterase (NEGATIVE) Urine WBC (Auto) (0-5) /HPF Urine RBC (Auto) (0-2) /HPF U Epithel Cells (Auto) (FEW) /HPF Urine Bacteria (Auto) (NEGATIVE) /HPF Urine Mucus (Auto) (NEGATIVE) /HPF Urine Culture Reflexed (NO) Urine Glucose (NEGATIVE) mg/dL Influenza Type A Ag (NEGATIVE) Influenza Type B Ag (NEGATIVE) RSV (PCR) (Negative) SARS-CoV-2 (PCR) (NEGATIVE) - Radiology Impressions Radiology Exams & Impressions: Radiology Procedures Category Date Time Status CHEST 1 VIEW (PORTABLE) Stat Exams 07/17/20 03:51 Taken Assessment/Plan (1) Fever, unknown origin Current Visit: Yes Status: Acute Assessment & Plan: will continue cefepime, await blood cultures, if negative tomorrow and remains afebrile can likely discharge to home then. (2) Multiple myeloma Current Visit: No Status: Acute Assessment & Plan: takes dilaudid prn for bone pain, will order IV as he is in a lot of pain this morning. Code(s): C90.00 - MULTIPLE MYELOMA NOT HAVING ACHIEVED REMISSION
--- NOTE | 2020-07-17 09:00 | XRAY ---
Indication: Fever. Comparison: March 18, 2019. Portable chest less inflated crowding lung bases. No focal infiltrate, consolidation, or large effusion. Heart is not enlarged with stable left Port-A-Cath. Bony thorax intact again with minimal degenerative changes and old bilateral rib fractures. Impression: Continued nonacute chest with chronic features.
[2020-07-17] MEDS: Hydromorphone 1 mg/ml Injection IV PRN ×4 (09:23→22:53)
[2020-07-17] MEDS: Maxipime 2 GM** 2 G in Dextrose 5%/Water IV Soln. 100ML PLUS BAG 100 ML IV SCH ×2 (10:06→22:52)
[2020-07-17] MEDS: PROZAC 10 MG PO SCH (11:41)
[2020-07-17] MEDS: Calcium 500MG W/Vit D Tablet PO SCH ×2 (11:41→22:53)
[2020-07-17] MEDS: Toprol Xl 100 MG PO SCH (11:41)
[2020-07-17] MEDS: Adalat CC 30 MG TABLET PO SCH (11:42)
[2020-07-17] MEDS: ZYLOPRIM 300 MG PO SCH (11:42)
[2020-07-17] MEDS: CLARITIN 10 MG PO SCH (11:42)
[2020-07-17] MEDS: Vitamin C 500 MG PO SCH ×2 (11:42→22:53)
[2020-07-17] MEDS ORDERED: NON-FORMULARY ITEM (Calcium [Calcium] 500 MG) PO SCH (22:00)
[2020-07-18] MEDS: Hydromorphone 1 mg/ml Injection IV PRN ×3 (04:19→12:59)
[2020-07-18] MEDS: Sodium Chloride 0.9% 1000 ML 1,000 ML IV SCH ×2 (06:13→15:22)
[2020-07-18 06:14] LABS: Hematocrit 28.1 % (42-50); Hemoglobin 8.8 gm/dl (12.5-18.0); Mean Cell Volume 102.9 fl (78-100); Mean Corpuscular Hemoglobin 32.2 pg (26-32); Mean Corpuscular Hgb Concent. 31.3 g/dl (32-36); Mean Platelet Volume 9.1 fl (7.5-11.0); Platelet Count 161 K/mm3 (150-450); Red Blood Count 2.73 M/mm3 (4.1-5.6); Red Cell Distribution Width 17.1 % (11.5-14.0); White Blood Count 6.1 K/mm3 (4.0-10.5)
[2020-07-18 06:28] LABS: ALBUMIN 3.4 g/dL (3.5-5.0); ALKALINE PHOSPHATASE 60 U/L (38-126); ANION GAP 13.2 MEQ/L (5-15); BLOOD UREA NITROGEN 23 mg/dL (9-20); CHLORIDE 105 mmol/L (98-107); Calcium 10.1 mg/dL (8.4-10.2); Carbon Dioxide 24 mmol/L (22-30); Creatinine 1 1.11 mg/dL (0.66-1.25); EST GLOMERULAR FILTRATION RATE > 60.0 ML/MIN; Glucose 87 mg/dL (74-106); Potassium 4.5 mmol/L (3.5-5.1); SGOT/AST 17 U/L (17-59); SGPT/ALT 11 U/L (0-50); SODIUM 138 mmol/L (137-145); Total Protein 5.7 g/dL (6.3-8.2)
[2020-07-18 07:00] VITALS: BP 148/70; PULSE 76; O2SAT 98
[2020-07-18] MEDS: Vitamin C 500 MG PO SCH (08:58)
[2020-07-18] MEDS: PROZAC 10 MG PO SCH (08:59)
[2020-07-18] MEDS: Toprol Xl 100 MG PO SCH (08:59)
[2020-07-18] MEDS: Calcium 500MG W/Vit D Tablet PO SCH (08:59)
[2020-07-18] MEDS: CLARITIN 10 MG PO SCH (08:59)
[2020-07-18] MEDS: Adalat CC 30 MG TABLET PO SCH (08:59)
[2020-07-18] MEDS: ZYLOPRIM 300 MG PO SCH (08:59)
[2020-07-18] MEDS: Maxipime 2 GM** 2 G in Dextrose 5%/Water IV Soln. 100ML PLUS BAG 100 ML IV SCH (09:00)
[2020-07-18] MEDS ORDERED: CETIRIZINE HCL 20 MG PO SCH (10:00)
[2020-07-18] MEDS ORDERED: NIFEDIPINE 30 MG PO SCH (10:00)
--- NOTE | 2020-07-18 14:40 | PCM.DS ---
Discharge Summary Date of Admission: 07/17/20 06:25 Admitting Physician: AB VALDOVINOS Primary Care Provider: AB VALDOVINOS Allergies Allergies chlorhexidine [From Hibiclens] Allergy (Verified 07/17/20 03:39) ciprofloxacin Allergy (Verified 07/17/20 03:39) morphine Allergy (Verified 07/17/20 03:39) oxycodone [Oxycodone] Allergy (Verified 07/17/20 03:39) prochlorperazine edisylate [From Compazine] Allergy (Verified 07/17/20 03:39) prochlorperazine maleate [From Compazine] Allergy (Verified 07/17/20 03:39) Sulfa (Sulfonamide Antibiotics) [Sulfa(Sulfonamide Antibiotics)] Allergy (Verified 07/17/20 03:39) Hospital Summary - Hospital Course Hospital Course: Patient is a 64yr old gentleman of Dr Valdovinos's who was adm to observation for fever unknown origin. He has Hx Multiple Myeloma and received Chemo therapy on 07/16/20 and c/o severe LBP and leg bone pain. He has been afebrile the entire stay. Blood culture no growth. He will be discharged home today to follow up with Dr Valdovinos next week. - Vitals & Intake/Output Vital Signs: Vital Signs Temperature 97.6 F 07/18/20 13:01 Pulse Rate 76 07/18/20 06:59 Respiratory Rate 18 07/18/20 06:59 Blood Pressure 148/70 07/18/20 06:59 O2 Sat by Pulse Oximetry 98 07/18/20 06:59 Intake & Output: Intake & Output 07/16/20 07/17/20 07/18/20 07/19/20 11:59 11:59 11:59 11:59 Intake Total 1586 2706 Output Total 3675 400 Balance 1586 -969 -400 Weight 115.7 kg - Lab Result Diagrams: 07/18/20 05:30 07/18/20 05:30 Lab Results-Last 24 Hrs: Lab Results-Last 24 Hours 07/17/20 07/18/20 07/18/20 Range/Units 16:01 05:30 05:30 WBC 6.1 (4.0-10.5) K/mm3 RBC 2.73 L (4.1-5.6) M/mm3 Hgb 8.8 L (12.5-18.0) gm/dl Hct 28.1 L (42-50) % MCV 102.9 H (78-100) fl MCH 32.2 H (26-32) pg MCHC 31.3 L (32-36) g/dl RDW 17.1 H (11.5-14.0) % Plt Count 161 (150-450) K/mm3 MPV 9.1 (7.5-11.0) fl Sodium 138 (137-145) mmol/L Potassium 4.5 (3.5-5.1) mmol/L Chloride 105 (98-107) mmol/L Carbon Dioxide 24 (22-30) mmol/L Anion Gap 13.2 (5-15) MEQ/L BUN 23 H (9-20) mg/dL Creatinine 1.11 (0.66-1.25) mg/dL Estimated GFR > 60.0 ML/MIN Glucose 87 (74-106) mg/dL Calcium 10.1 (8.4-10.2) mg/dL Total Bilirubin 0.20 (0.2-1.3) mg/dL AST 17 (17-59) U/L ALT 11 (0-50) U/L Alkaline Phosphatase 60 (38-126) U/L Troponin I < 0.012 (0.000-0.034) ng/mL Serum Total Protein 5.7 L (6.3-8.2) g/dL Albumin 3.4 L (3.5-5.0) g/dL Micro Results-Entire Visit: Microbiology 07/17/20 04:15 Blood Culture - Preliminary Blood NO GROWTH TO DATE 07/17/20 04:10 Blood Culture - Preliminary Blood NO GROWTH TO DATE - Radiology Exams Ordered Rad Exams-Entire Visit: Radiology Procedures Category Date Time Status CHEST 1 VIEW (PORTABLE) Stat Exams 07/17/20 03:51 Completed - Procedures and Test Procedures and Tests throughout Hospitalization: Therapy Orders & Screens 07/17/20 08:22 OT Screen per Nursing Assess ONCE Comment: Protocol Order Physician Instructions: Greater than 3 points order OT Admission Screening Reason For Exam: Triggered on Admission Diagnosis: Fever of unknown origin Open Wound/Cellutlitis/Pressure Ulcers: No Acute Fx/ORIF/Change in wt bearing status: No Severe MUSCULOSKELETAL pain: Yes ADL Dysfunction: No Acute CVA w/Hemiparesis/Hemiplegia: No Decreased Functional Mobility/Strength: No Sprain/Strain: No Acute Post-op Mobility Dysfunction: No Total Points: 5 PT Screen per Nursing Assess ONCE Comment: Protocol Order Physician Instructions: Greater than 3 points order PT Admission Screenin Reason For Exam: Triggered on Admission Diagnosis: Fever of unknown origin Open Wound/Cellutlitis/Pressure Ulcers: No Acute Fx/ORIF/Change in wt bearing status: No Severe MUSCULOSKELETAL pain: Yes ADL Dysfunction: No Acute CVA w/Hemiparesis/Hemiplegia: No Decreased Functional Mobility/Strength: No Sprain/Strain: No Acute Post-op Mobility Dysfunction: No Total Points: 5 Discharge Exam General Appearance: no apparent distress Neurologic Exam: alert, oriented x 3, cooperative, normal mood/affect Eye Exam: eyes nml inspection Ears, Nose, Throat Exam: normal ENT inspection Neck Exam: normal inspection Respiratory Exam: normal breath sounds Cardiovascular Exam: regular rate/rhythm Gastrointestinal/Abdomen Exam: soft (nontender) Extremity Exam: other (no pitting edema) Skin Exam: warm, dry (pale) Final Diagnosis/Problem List - Final Discharge Diagnosis/Problem (1) Fever, unknown origin Current Visit: Yes Status: Resolved Assessment & Plan: fever post chemotherapy ,resolved (2) Multiple myeloma Current Visit: No Status: Chronic Code(s): C90.00 - MULTIPLE MYELOMA NOT HAVING ACHIEVED REMISSION (3) Anemia Current Visit: No Status: Chronic Assessment & Plan: monitor Code(s): D64.9 - ANEMIA, UNSPECIFIED - Discharge Disposition: Home, Self-Care Condition: Stable Prescriptions: Continue Nifedipine [Nifedipine ER] 30 mg PO DAILY Metoprolol Succinate 100 mg [Toprol Xl 100 MG] 100 mg PO DAILY Allopurinol 300 mg [Zyloprim 300 mg] 1 tab PO DAILY Fluoxetine HCl 10 mg [Prozac 10 mg] 10 mg PO DAILY Ascorbic Acid [Vitamin C] 500 mg PO BID Cyanocobalamin 1000 Mcg/ml [Cyanocobalamin B-12 1000 MCG/ML] 1,000 mcg SQ DIRECTIONS UNKNOWN Calcium 500 mg PO BID Cetirizine HCl [Zyrtec] 20 mg PO DAILY Hydromorphone HCl 4 mg [Dilaudid 4 MG Tab] 2 mg PO Q6HPRN PRN PRN Reason: Pain Additional Instructions: Admit corrected to Observation. Follow up with: AB VALDOVINOS MD [Primary Care Provider] -
[2020-07-18 15:09] LABS: ANISOCYTOSIS 1+; BAND 1 % (0.0-2.0); Lymphocytes 24 % (24-44); Monocyte 3 % (0.0-12.0); Neutrophils 72 % (36.-66.); Platelet Estimate NORMAL (NORMAL); Total Cells Counted 100; Toxic Granulation 1+
== END 2020-07-18 15:40 | disposition home or self-care (01) ==
LOC: ED 03:30 → INTOOBSV 06:25 → MED SURG 06:25
PROVIDERS: ADMIT Family Medicine; ATTEND Family Medicine
DX: R50.9 Fever, unspecified (principal); C90.00 Multiple myeloma not having achieved remission; D64.9 Anemia, unspecified; Z79.899 Other long term (current) drug therapy; M54.5 Low back pain; I10 Essential (primary) hypertension
CPT/HCPCS: 0241U; 36000; 36415; 71045; 80053; 81001; 83605; 84484; 85025; 87040; 93005; 93041; 93268; 96360; 96365; 99285; G0378; J0692; J1170; J1642; A9270-GY